=== PATIENT | female | born 1950 | race Caucasian/White ===

== ENCOUNTER → 2021-10-12 | Outpatient (CLI) | payer MEDICARE ==
[2021-10-12 17:50] LABS: African American GFR (CKD) >90 (>60 ml/min/1.73 sqM); Blood Urea Nitrogen 20 mg/dL (7-17); Non-African American GFR(CKD) >90 (>60 ml/min/1.73 sqM)
--- NOTE | 2021-10-13 10:00 | CT ---
EXAMINATION TYPE: CT chest w con DATE OF EXAM: 10/12/2021 COMPARISON: Head CT 09/19/2021 HISTORY: pre-op lobectomy CT DLP: 203 mGycm Automated exposure control for dose reduction was used. TECHNIQUE: CT scan of the chest is performed with IV Contrast, patient injected with 100 mL of Isovue 300. MIP Images are created on CT scanner and reviewed. 3D reconstructed images are created on an independent workstation and reviewed. FINDINGS: LUNGS: Left suprahilar mass is stable measuring 2.9 x 2.3 cm. Underlying mild emphysematous changes a re seen. No focal pneumonia or pleural effusion. No pneumothorax. MEDIASTINUM: Coronary artery calcification. Suprahilar mass on the left measuring 2.9 cm difficult to determine if this is mediastinal or intrapulmonary. Aorta of normal caliber. Atherosclerotic change is noted. OTHER: Hypertrophic and degenerative changes spine. IMPRESSION: 1. Suspicious left suprahilar mass measuring 2.9 cm similar to the previous PET scan.
== END | disposition home or self-care (01) ==
LOC: RADCTMAIN 16:53
PROVIDERS: ATTEND Thoracic Surgery (Cardiothoracic Vascular Surgery)
DX: Z01.818 Encounter for other preprocedural examination (principal); C34.12 Malignant neoplasm of upper lobe, left bronchus or lung
CPT/HCPCS: 82565; 84520; 71260; 36415; Q9967

== ENCOUNTER 2021-10-19 05:57 | Inpatient (IN) | payer MEDICARE ==
[2021-10-18 09:47] VITALS: BMI 25.7
[2021-10-19] MEDS ORDERED: DEXAMETHASONE SOD PHOSPHATE 4 MG/ML 1 ML VIAL IV ONE (06:39)
[2021-10-19] MEDS ORDERED: MIDAZOLAM 2 MG/2 ML VIAL IV PRN (06:39)
[2021-10-19] MEDS ORDERED: LACTATED RINGERS 1,000 ML IV SCH (06:39)
[2021-10-19] MEDS ORDERED: ONDANSETRON 4 MG/2 ML VIAL IVP ONE (06:39)
[2021-10-19] MEDS ORDERED: HYDROmorphone 0.5 MG/0.5 ML SYRINGE IVP PRN (07:00)
[2021-10-19] MEDS ORDERED: LACTATED RINGERS 1,000 ML IV ONE ×3 (07:01→09:10)
[2021-10-19] MEDS ORDERED: MIDAZOLAM 2 MG/2 ML VIAL IVP ONE (07:10)
[2021-10-19] MEDS ORDERED: LIDOCAINE 1% INJ 10MG/ML (20 ML MDV) ONE (07:40)
[2021-10-19] MEDS ORDERED: GLYCOPYRROLATE 0.2 MG/ML 2 ML VIAL ONE (07:40)
[2021-10-19] MEDS ORDERED: fentaNYL (PF) 50 MCG/ML 2 ML AMP ONE (07:40)
[2021-10-19] MEDS ORDERED: SUCCINYLCHOLINE CHLORIDE 100 MG/5 ML SYR IV ONE (07:40)
[2021-10-19] MEDS ORDERED: PROPOFOL 10 MG/ML 20 ML VIAL IV ONE (07:40)
[2021-10-19] MEDS ORDERED: ePHEDrine 50 MG/ML 1 ML VIAL ONE (07:40)
[2021-10-19] MEDS ORDERED: MIDAZOLAM 2 MG/2 ML VIAL ONE (07:40)
[2021-10-19] MEDS ORDERED: ROCURONIUM 10 MG/ML (5 ML VIAL) IV ONE (07:40)
[2021-10-19] MEDS ORDERED: NEOSTIGMINE 1 MG/ML 10 ML VIAL ONE (07:40)
[2021-10-19] MEDS ORDERED: SODIUM CHLORIDE 0.9% 100 ML with ceFAZolin 2,000 MG IV ONE ×2 (07:46)
[2021-10-19] MEDS ORDERED: ROPIVACAINE 250 MG, HYDROMORPHONE (PF) 5 MG in SODIUM CHLORIDE 0.9% 200 ML EPIDURAL PRN (09:41)
[2021-10-19] MEDS ORDERED: NALOXONE 0.4 MG/ML 1 ML VIAL IV PRN (09:41)
--- NOTE | 2021-10-19 09:41 | P.ANPRN ---
Procedure Note - Anesthesia - Epidural/Spinal Epidural Continuous Time Out Performed: Yes Date of Procedure: 10/19/21 Procedure Start Time: 07:09 Procedure Stop Time: 07:16 Location of Patient: PreOp Indication: Acute Post-Operative Pain Sedation Type: Sedate with meaningful contact maintained Preparation: Sterile Dressing Position: Sitting Catheter: Indwelling Needle Guage: 18 Injectate: Test Dose Lidocaine1.5% w/1:200,000 epi Blood Aspirated: No Pain Paresthesia on Injection Noted: No Events: Uneventful and Well Tolerated (test dose given 3cc no aderse effect)
--- NOTE | 2021-10-19 12:04 | XR ---
EXAMINATION TYPE: XR chest 1V portable DATE OF EXAM: 10/19/2021 COMPARISON: NONE HISTORY: Status post lobectomy TECHNIQUE: Single frontal view of the chest is obtained. FINDINGS: Left-sided chest tube is in place the distal tip coursing towards the apex. No sizable pne umothorax. Volume loss present within the left hemithorax. Subcutaneous emphysema is present. No evid ent effusion. Patchy basilar density noted on the right. Cardiac mediastinal silhouette is within nor mal limits. Aorta is dense. There are overlying leads. Surgical clip present in the left hilar region . IMPRESSION: No evident complication status post lobectomy
[2021-10-19] MEDS ORDERED: fentaNYL (PF) 50 MCG/ML 2 ML AMP IVP ONE (12:05)
[2021-10-19] MEDS ORDERED: KETOROLAC 15 MG/ML 1 ML VIAL IVP ONE (12:19)
[2021-10-19] MEDS ORDERED: traMADol 50 MG TAB PO PRN (12:22)
[2021-10-19] MEDS ORDERED: ACETAMINOPHEN TAB 325 MG TAB PO PRN (12:22)
[2021-10-19] MEDS ORDERED: ONDANSETRON 4 MG/2 ML VIAL IVP PRN (12:22)
[2021-10-19] MEDS ORDERED: IPRATROPIUM-ALBUTEROL 3 ML NEB IH PRN (12:22)
[2021-10-19 13:11] LABS: Glucose,Whole Blood 142 mg/dL (75-99)
[2021-10-19] MEDS: DEXTROSE 5%-0.45% NACL 1,000 ML IV SCH (13:19)
[2021-10-19] MEDS: IPRATROPIUM-ALBUTEROL 3 ML NEB IH SCH ×3 (13:34→20:01)
[2021-10-19] MEDS ORDERED: ARTIFICIAL TEARS-HYPROMELLOSE DROPS 15 ML BTL BOTH EYES PRN (14:00)
[2021-10-19] MEDS: diphenhydrAMINE 50 MG/ML 1 ML VIAL IVP PRN ×2 (14:06→20:43)
--- NOTE | 2021-10-19 14:12 | P.OP ---
Date of Procedure: 10/19/21 Preoperative Diagnosis: Left upper lobe lung mass Postoperative Diagnosis: Same Procedure(s) Performed: Left thoracotomy, left upper lobectomy, mediastinal lymph node dissection Implants: None Anesthesia: MINA Surgeon: Rigoberto Turner Estimated Blood Loss (ml): 50 IV fluids (ml): 500 Urine output (ml): 200 Pathology: other (Frozen section of primary tumor showed non-small cell carcinoma, frozen section of bronchial margin was negative, permanent section was sent on the left upper lobe and on lymph node stations L5, L6, level 7, and L10) Indications for Procedure: 71-year-old female who presents with a central left upper lobe mass. Attempts at biopsy were unsuccessful. He this was negative for mediastinal lymph node involvement. PET scan showed uptake in the tumor and no evidence of metastasis. There were no enlarged mediastinal or hilar lymph nodes noted. The tumor was adjacent to the left main pulmonary artery although not obviously invasive thereof. Left upper lobectomy was requested by Dr. Lemon. This was felt to be appropriate. Was discussed at length with the patient and she was scheduled electively. On initial discussion with the patient in a minimally invasive approach was planned however prior to the procedure we wanted to perform a computed tomography scan with contrast in order to better define the pulmonary artery anatomy in relation to the primary tumor. When this was performed and evaluated it was felt that a minimally invasive approach would not be appropriate due to the close apposition of the tumor to the first branch of the pulmonary artery. This was discussed with the patient. Operative Findings: Fissures were incomplete particularly anteriorly. There was a dense desmoplastic reaction in the hilum which made dissection of all the hilar structures very difficult. The tumor was closely opposed to the left pulmonary artery but there was a plane between the 2. Versed 2 branches of the left pulmonary artery leading to the left upper lobe were fairly well encased in tumor and only about a 2 mm length could be obtained on either one of them. Lymph nodes were fairly sparse. There were lymph nodes in the L5 region which were resected and appeared to be benign. There was one lymph node in the L6 region which was resected and appeared to be benign. There was one L 10 lymph node along the mainstem bronchus which was resected and appeared to be benign. There is one small lymph node in the level 7 position which was resected and appeared to be benign. The L8 region was extensively dissected and no lymph nodes were noted. This was the same with L9. On completion of the case the hilum was clean. There was no evidence of tumor. Frozen section of the bronchial margin was negative. Airleak was minimal. Description of Procedure: The patient was brought to the operating room, placed supine on the operating table, anesthetized and intubated. Positioning of the endotracheal tube was confirmed with bronchoscopy. No endobronchial lesions were noted. Tube was secured and the patient was turned in the right lateral decubitus position and appropriately positioned for lobectomy. The left chest was sterilely prepped and draped. Anterior lateral thoracotomy incision was performed. The latissimus muscle was divided and the serratus muscle was mobilized and spared. Chest was entered in the fifth interspace and the intercostals were undercut anteriorly and posteriorly to allow easy rib spreading. 2 Tuffier retractors were placed. Pleural space was exposed. On exploration the tumor was evident on the proximal pulmonary artery. Careful dissection was carried out around the hilum. The inferior pulmonary ligament was mobilized. Dissection was begun at the base of the fissure posteriorly and the pulmonary artery was identified. We were able to complete the fissure posteriorly with the electrocautery. There was a small posterior branch of the pulmonary artery leading to the upper lobe which was doubly ligated and divided. Dissection was then carried along to the lingular branch. This was a large branch. Careful sharp dissection was carried out around annular branch was doubly ligated and divided. Dissection was now carried anteriorly and the inferior portion of the superior pulmonary vein was identified and dissection was carried into the hilum along this plane. We were eventually able to dissected from posteriorly and anteriorly and get around the bronchus anteriorly and through to the anterior portion we were now able to complete the fissure anteriorly with a single firing of Endo MIKHAIL medium thick stapler. Next we did sharp dissection around the upper lobe bronchus at its takeoff from the mainstem bronchus. Lymph nodes were resected en bloc with the specimen. Once we encircled the bronchus we were able to ligated and divided with a medium thick Endo MIKHAIL stapler. We now continued our dissection around the superior pulmonary vein. We were eventually able to completely encircle the superior pulmonary vein. It was ligated proximally with a TA-30 vascular stapler and clamped of the specimen side and divided along the staple line. We then oversewed the clamped portion right at the base of the tumor. With further dissection of the hilum we now could identify 2 remaining branches of the pulmonary artery that were very short and leading into the tumor. All of these were encircled separately. They were ligated and divided and the lobectomy specimen was sent for frozen section of the primary tumor as well as of the bronchial margin. Inspection of the surgical field revealed no evidence of residual tumor. Lymph nodes from the L5 and L6 regions were resected. These were sent for permanent section. Dissection was carried out along the mainstem bronchus and the L 10 and level 7 lymph nodes were resected and sent for permanent section. The LAD and L9 regions were now carefully explored and no lymph nodes were noted. Frozen section returned positive for non-small cell carcinoma in the primary tumor and negative for the bronchial margin. Specific request was made for with pathology discovered dissected the hilum and multiply hilar lymph nodes. The chest was now irrigated with warm water and the lung inflated. Minimal air leak was noted. AtriCure cryoprobe was used to freeze the intercostal nerves at levels 3456 and 7 posteriorly. 28-Greek chest tube was placed through separate stab incision and positioned posterior apically. The ribs were reapproximated with #1 Vicryl. Muscle layers were reapproximated with 0 Vicryl. Subcutaneous tissues were reapproximated with 2-0 Vicryl. Skin was reapproximated with 3-0 Vicryl. Dry sterile dressings were applied the patient was turned supine and extubated and transferred to recovery in stable condition.
--- NOTE | 2021-10-19 15:47 | P.CNPUL ---
History of Present Illness Consult date: 10/19/21 Requesting physician: Rigoberto Turner Reason for consult: other (Status post lobectomy) Chief complaint: Lung mass History of present illness: This is a 71-year-old female with known history of mild COPD, patient was referred to Dr. Lemon on recently discovered left upper lobe mass. Clinically, the mass was highly suspicious for bronchogenic carcinoma. The mass was initially seen in August of 2021, it measured 2.9 cm in size, and there was evidence of mildly enlarged mediastinal lymph nodes. PET scan confirmed the presence of a suprahilar mass in the left upper lobe with average uptake of 6 maximum of 10.SUV. Patient underwent a bronchoscopy and endobronchial ultrasound by Dr. Rui Funes, however the bronchoscopy was nondiagnostic. Patient had minimal pulmonary symptoms mostly mild dyspnea on exertion, her PFT showed FEV1 of 72% of the predicted her total lung capacity was 104%, DLCO was 60%. Patient was referred to Dr. Turner and she underwent left upper lobectomy today, as well as mediastinal lymph node dissection frozen section showed non- small cell carcinoma bronchial margins were negative, chest x-ray postoperatively is basically unremarkable, left-sided chest tube is noted, no evidence of any significant pneumothorax, and the patient is doing clinically well. She is on 2 L nasal cannula with O2 saturation of 100%. Review of Systems Constitutional: Negative patient denies fever chills night sweats or weight loss. HEENT: Negative Pulmonary: Patient had no symptoms except for occasional cough and minimal dyspnea on exertion Cardiac: Negative GI: Negative Genitourinary: Negative Muscular skeletal: Negative Hematologic: Negative Endocrine: Negative Psychiatric: Negative Neurologic: Negative Skin: Negative Past Medical History Additional Past Medical History / Comment(s): Hx pneumonia, bronchitis., numbness/tingling hands., mass left lung, states healing cold sores . History of Any Multi-Drug Resistant Organisms: None Reported Additional Past Surgical History / Comment(s): D & C (1998), BRONCHOSCOPY. Past Anesthesia/Blood Transfusion Reactions: No Reported Reaction Past Psychological History: No Psychological Hx Reported Smoking Status: Former smoker Past Alcohol Use History: Occasional Additional Past Alcohol Use History / Comment(s): quit smoking 2 weeks ago, started smoking age 17, smoked off and on -up to 1 ppd. Past Drug Use History: None Reported - Past Family History Mother Family Medical History: Cancer Additional Family Medical History / Comment(s): stomach cancer Medications and Allergies Home Medications Medication Instructions Recorded Confirmed Type Aspirin [Adult Low Dose Aspirin EC] 81 mg PO Q48H 10/18/21 10/19/21 History Calcium Carbonate [Calcium] 1,200 mg PO DAILY 10/18/21 10/19/21 History Glucosam/Niranjan-Msm1/C/Kam/Bosw 1 each PO DAILY 10/18/21 10/19/21 History [Glucosamine-Chondroitin Tablet] Multivit-Min/FA/Lycopen/Lutein 1 each PO DAILY 10/18/21 10/19/21 History [Centrum Silver Tablet] Rincon-3 Fatty Acids/Fish Oil [Fish 1 each PO DAILY 10/18/21 10/19/21 History Oil 1,000 mg Softgel] Vit C/E/Zn/Coppr/Lutein/Zeaxan 2 tab PO DAILY 10/18/21 10/19/21 History [Preservision Areds 2 Softgel] Allergies Allergy/AdvReac Type Severity Reaction Status Date / Time amoxicillin Allergy Unknown Rash/Hives Verified 10/19/21 06:40 Sulfa (Sulfonamide Allergy Unknown Rash/Hives Verified 10/19/21 06:40 Antibiotics) Physical Exam Vitals: Vital Signs Temp Pulse Pulse Pulse Resp BP BP 10/19/21 15:14 96 10/19/21 15:06 95 16 10/19/21 14:00 87 23 113/63 10/19/21 13:45 89 14 10/19/21 13:30 86 11 L 10/19/21 13:15 61 14 113/63 10/19/21 13:01 68 11 L 10/19/21 12:46 64 16 122/60 10/19/21 12:32 58 L 16 124/63 10/19/21 12:16 56 L 16 98/55 10/19/21 12:00 79 16 94/54 10/19/21 11:45 70 16 95/55 10/19/21 11:39 97.0 F L 77 12 110/64 10/19/21 06:35 97.1 F L 72 16 133/76 Pulse Ox 10/19/21 15:14 10/19/21 15:06 10/19/21 14:00 97 10/19/21 13:45 97 10/19/21 13:30 98 10/19/21 13:15 97 10/19/21 13:01 10/19/21 12:46 98 10/19/21 12:32 100 10/19/21 12:16 100 10/19/21 12:00 100 10/19/21 11:45 99 10/19/21 11:39 99 10/19/21 06:35 96 Intake and Output 10/19/21 10/19/21 10/19/21 06:59 14:59 22:59 Intake Total 1711 Output Total 440 Balance 1271 Intake: IV 1561 Dextrose 5%-0.45% NaCl 1, 50 000 ml @ 50 mls/hr IV . Q20H [facility] Rx#:[id number] Oral 150 Output: Urine 390 Estimated Blood Loss 50 Other: Weight 72.8 kg ABP, PAP, CO, CI - Last 8 Hours Arterial Blood Pressure 128/60 Arterial Blood Pressure 122/55 Arterial Blood Pressure 111/52 Arterial Blood Pressure 110/46 Physical Exam: Revealed 71-year-old female in no distress Head: Atraumatic, normocephalic. HEENT:[Neck is supple.] [No neck masses.] [No thyromegaly.] [No JVD.]. Lillian, EOMI, nonicteric. Moist mucous membranes. Chest: Symmetrical chest expansion, diminished breath sound bilaterally, left sided chest tube is noted. Intermittent air leak is noted. Cardiac Exam: [Normal S1 and S2, no S3 gallop, no murmur.] Abdomen: [Soft, nontender, no megaly, no rebound, no guarding, normal bowel sounds.] Extremities: [No clubbing, no edema, no cyanosis.] Neurological Exam: [No focal neurologic deficit.] Alert oriented 3. Psychiatric: Normal mood, affect and normal mental status examination. Skin: No rashes. Musculoskeletal: No deformities and no limitation in range of motion. Results - Laboratory Findings Abnormal lab findings: Abnormal Labs 10/19/21 13:08 POC Glucose (mg/dL) 142 H - Diagnostic Findings Chest x-ray: image reviewed (As noted in HPI.) Assessment and Plan Assessment: Impression: Status post left upper lobectomy, mediastinal lymph node dissection, postoperative day #0 Non-small cell lung cancer, based on frozen section of primary tumor History of mild COPD Tobacco dependence syndrome Recommendation: Continue to monitor the patient in the ICU for now. Incentive spirometry. Early ambulation. Continue chest tube to suction. Repeat chest x-ray in a.m. for follow-up. Awaiting final pathology report. Continue updrafts when necessary. Pain control. GI and DVT prophylaxis. We'll continue to follow. Time with Patient: Greater than 30
[2021-10-19] MEDS: HEPARIN SODIUM,PORCINE/PF 5,000 UNIT/0.5 ML SYRINGE SQ SCH (16:31)
[2021-10-19] MEDS: KETOROLAC 30 MG/ML 1 ML VIAL IVP SCH (17:55)
[2021-10-20] MEDS: KETOROLAC 30 MG/ML 1 ML VIAL IVP SCH ×5 (00:58→23:33)
[2021-10-20] MEDS: HEPARIN SODIUM,PORCINE/PF 5,000 UNIT/0.5 ML SYRINGE SQ SCH ×4 (00:58→23:33)
[2021-10-20 06:03] LABS: Basophils % (A) 0 %; Eosinophils # (A) 0.1 k/uL (0-0.7); Eosinophils % (A) 1 %; HCT 40.3 % (34.0-46.0); HGB 12.8 gm/dL (11.4-16.0); Lymphocytes # (A) 2.3 k/uL (1.0-4.8); Lymphocytes % (A) 18 %; MCH 31.3 pg (25.0-35.0); MCHC 31.8 g/dL (31.0-37.0); MCV 98.6 fL (80.0-100.0); Mean Platelet Volume 7.2; Monocytes # (A) 0.9 k/uL (0-1.0); Monocytes % (A) 8 %; Neutrophils % (A) 71 %; Platelet Count 248 k/uL (150-450); RBC 4.08 m/uL (3.80-5.40); WBC 12.6 k/uL (3.8-10.6)
[2021-10-20 06:12] LABS: Calcium 8.6 mg/dL (8.4-10.2); Potassium 4.9 mmol/L (3.5-5.1)
[2021-10-20] MEDS: DEXTROSE 5%-0.45% NACL 1,000 ML IV SCH (07:46)
--- NOTE | 2021-10-20 08:05 | XR ---
EXAMINATION TYPE: XR chest 1V DATE OF EXAM: 10/20/2021 COMPARISON: Chest x-ray dated 10/19/2021 HISTORY: Status post lobectomy, chest tube TECHNIQUE: Single frontal view of the chest is obtained. FINDINGS: Left-sided chest tube is stable. There is subcutaneous emphysema. No evident pneumothorax or pleural effusion. Cardiac mediastinal silhouette is stable. Bones are unchanged. There is improvem ent in aeration. Surgical clips present in the left hilar region, left hilar prominence may be postop erative. IMPRESSION: Satisfactory postoperative chest x-ray.
[2021-10-20] MEDS: IPRATROPIUM-ALBUTEROL 3 ML NEB IH SCH ×4 (08:37→19:36)
[2021-10-20] MEDS: ASPIRIN 81 MG PO SCH (09:05)
[2021-10-20] MEDS: PANTOPRAZOLE 40 MG TABLET PO SCH (09:06)
[2021-10-20] MEDS: CALCIUM CARBONATE 500 MG CHEWABLE PO SCH (09:06)
--- NOTE | 2021-10-20 09:21 | P.PN ---
Progress Note - Text 10/20/21 640 69-year-old status post thoracotomy by Dr. Turner, patient has an epidural catheter for postoperative pain. Control with the solution running at 4 mL an hour. She has a VAS of 0, no complains of nausea. She does have complains of pruritus which is because of Dilaudid . Dressing clean dry and intact. Plan to continue epidural infusion
--- NOTE | 2021-10-20 09:40 | P.PN ---
Subjective Progress Note Date: 10/20/21 Principal diagnosis: Left upper lobe lung mass. Past medical History significant for mild COPD with preoperative FEV1 showing a 72% of predicted value and chronic ongoing tobacco dependence. POD #1 Left thoracotomy, left upper lobectomy, mediastinal lymph node dissection. The patient was seen in follow-up today 10/20/2021 at her bedside in the intensive care unit. Currently she is laying in bed with her head elevated, is awake, alert, oriented 3 and is in no acute apparent distress. Epidural remained in place at 4 mL per hour and is currently rating her pain 3 out of 10 on the pain scale. She remains hemodynamically stable and is currently on no inotropic or pressor support. Left pleural chest tube is in place to water seal. No air leak is present. Draining thin serosanguineous drainage with 300 mL output in the last 8 hours and 800 mL output since surgery. Oxygen saturations are 96% on 1 L nasal cannula and she is achieving 750 mL on her incentive spirometry with encouragement. Bedside telemetry showing normal sinus rhythm heart rate 90 BPM. She denies any complaints of shortness of breath although is complaining of some itchiness from the epidural. Objective - Vital Signs Vital signs: Vital Signs Temp 98.7 F 10/20/21 04:00 Pulse 84 10/20/21 06:00 Resp 14 10/20/21 06:00 BP 83/64 10/20/21 06:00 Pulse Ox 96 10/20/21 06:00 Intake & Output 10/19/21 10/20/21 10/20/21 18:59 06:59 18:59 Intake Total 2173 1484 Output Total 850 1075 Balance 1323 409 Weight 74.389 kg Intake: IV 1773 664 Dextrose 5%-0.45% NaCl 1, 250 575 000 ml @ 50 mls/hr IV . Q20H [facility] Rx#:[id number] Pressure Bag 12 39 ceFAZolin 2 gm In Sodium 50 Chloride 0.9% 50 ml @ 100 mls/hr IVPB Q8HR [facility] Rx# :[id number] Oral 400 820 Output: Chest Tube Drainage 250 400 Left Anterior Chest 250 400 Urine 550 675 Estimated Blood Loss 50 Other: Voiding Method Indwelling Catheter Indwelling Catheter ABP, PAP, CO, CI - Last Documented Arterial Blood Pressure 97/50 - Exam CONSTITUTIONAL: Lying in bed with her head elevated in the intensive care unit, appears comfortable, cooperative, no apparent acute distress. HEENT: Neck is supple, no JVD, no lymphadenopathy. RESPIRATORY: Lungs sounds essentially clear throughout, diminished to his bilateral bases left greater than right. Respirations are symmetrical and nonlabored. Currently on 1 L nasal cannula with oxygen saturations 96%. Able to achieve 750 mL on her incentive spirometry. Strong cough. CARDIOVASCULAR: Regular rhythm and rate. S1 and S2 present, negative for S3, gallop or murmur. Palpable peripheral pulses bilaterally. No calf pain or tenderness noted. Knee-high sequential compression devices in place to his bilateral lower extremities. GASTROINTESTINAL: Abdomen soft, nontender, nondistended. Active bowel sounds present 4 quadrants. Tolerating diet. Passing flatus. No guarding or rigidity. GENITOURINARY: Lima present draining clear, yellow urine. Output 355 mL in the last 8 hours. INTEGUMENTARY: Skin is warm and dry with no evidence of clubbing or cyanosis. Left lateral chest incision, covered with dry and intact dressing. Epidural site is clean and dry with dressing clean, dry and intact. NEUROLOGIC: Cranial nerves II through XII intact. No focal deficits. Epidural infusing at 4 mL per hour MUSKULOSKELETAL: Able to move all extremities, strength equal bilaterally. PSYCHIATRIC: Alert and oriented to person place and time, appropriate affect, intact judgment and insight. INVASIVE LINES AND TUBES: Left pleural chest tube present to waterseal, no air leaks present. Left pleural chest tube with 300 mL of thin serosanguineous zulma inage overnight, 800 mL output in the last 24 hours. - Allied health notes Allied health notes reviewed: nursing - Labs CBC & Chem 7: 10/20/21 05:23 10/20/21 05:28 Labs: Abnormal Lab Results - Last 24 Hours (Table) 10/19/21 10/20/21 10/20/21 Range/Units 13:08 05:23 05:28 WBC 12.6 H (3.8-10.6) k/uL Neutrophils # 9.0 H (1.3-7.7) k/uL Sodium 130 L (137-145) mmol/L POC Glucose (mg/dL) 142 H (75-99) mg/dL - Imaging and Cardiology Chest x-ray: report reviewed, image reviewed Assessment and Plan Assessment: 1. Left upper lobe mass, status post left thoracotomy, left upper lobectomy with frozen section of primary tumor showing non-small cell carcinoma 2. Mild COPD with a preoperative FEV1 showing a 72% of predicted value 3. Chronic ongoing tobacco dependence Plan: 1. Keep left pleural chest tube in place to water seal. Continue to monitor for air leak. 2. Encourage use of her incentive spirometry 10 times every hour while awake. 3. Wean oxygen as tolerated. Bronchodilator management per pulmonary critical care recommendations. 4. GI and DVT prophylaxis 5. Follow up pathology results, currently pending. 6. Increase activity as tolerated, out of bed for all meals. 7. Epidural management per anesthesia. 8. Importance of smoking cessation has been discussed with the patient. 9. Pain control per current when necessary orders. 10. Discontinue IV fluids. 11. Transfer orders have been placed to third floor cardiac stepdown unit. 12. More recommendations to follow based on patient's clinical course. Time with Patient: Greater than 30
--- NOTE | 2021-10-20 14:43 | P.PN ---
Subjective Progress Note Date: 10/20/21 This is a 71-year-old female with known history of mild COPD, patient was refer red to Dr. Lemon on recently discovered left upper lobe mass. Clinically, the mass was highly suspicious for bronchogenic carcinoma. The mass was initially seen in August of 2021, it measured 2.9 cm in size, and there was evidence of mildly enlarged mediastinal lymph nodes. PET scan confirmed the presence of a suprahilar mass in the left upper lobe with average uptake of 6 maximum of 10.SUV. Patient underwent a bronchoscopy and endobronchial ultrasound by Dr. Rui Funes, however the bronchoscopy was nondiagnostic. Patient had minimal pulmonary symptoms mostly mild dyspnea on exertion, her PFT showed FEV1 of 72% of the predicted her total lung capacity was 104%, DLCO was 60%. Patient was referred to Dr. Turner and she underwent left upper lobectomy today, as well as mediastinal lymph node dissection frozen section showed non- small cell carcinoma bronchial margins were negative, chest x-ray postoperatively is basically unremarkable, left-sided chest tube is noted, no evidence of any significant pneumothorax, and the patient is doing clinically well. She is on 2 L nasal cannula with O2 saturation of 100%. On today's evaluation of 10/20/2021, seeing the patient for a follow-up. The patient is doing well. The patient is post left upper lobe lobectomy. The patient is postop day #1. The patient underwent a left upper lobe resection/lobectomy and mediastinal for resection. The patient otherwise doing well. No specific complaints. The patient is currently on room air oxygen. The patient has an epidural pain control with hydromorphone and bupivacaine and the pain scale is around 3 out of 10 in severity. She is able to tolerate incentive spirometer. Chest tube is still in place and there is no evidence of any air leak and output has been approximately 800 mL since surgery, theophylline disease over the past 8 hours. Cardiac rhythm is sinus. Chest x- ray showed no evidence of any pneumothorax. Her only complaint is some limited amount of itching probably related today drug effect related to the narcotics. Otherwise, no other specific complaints. The white cell count is at 12.6 with a hemoglobin of 12.8 and a platelet count of 248. Sodium is at 1:30 with a potassium level of 4.1, BUN is at 17 with a creatinine of 0.8 and a calcium l evel is at 8.6. Objective - Vital Signs Vital signs: Vital Signs Temp 98 F 10/20/21 08:00 Pulse 78 10/20/21 11:00 Resp 10 L 10/20/21 11:00 BP 94/48 10/20/21 11:00 Pulse Ox 96 10/20/21 11:00 Intake & Output 10/19/21 10/20/21 10/20/21 18:59 06:59 18:59 Intake Total 2173 1484 1452 Output Total 850 1075 140 Balance 9404 292 4920 Weight 74.389 kg Intake: IV 1773 664 12 Dextrose 5%-0.45% NaCl 1, 250 575 000 ml @ 50 mls/hr IV . Q20H MEHUL Rx#:[id number] Pressure Bag 12 39 12 ceFAZolin 2 gm In Sodium 50 Chloride 0.9% 50 ml @ 100 mls/hr IVPB Q8HR MEHUL Rx# :[id number] Oral 706 376 1154 Output: Chest Tube Drainage 250 400 Left Anterior Chest 250 400 Urine 550 675 140 Estimated Blood Loss 50 Other: Voiding Method Indwelling Catheter Indwelling Catheter Indwelling Catheter ABP, PAP, CO, CI - Last Documented Arterial Blood Pressure 97/50 - Exam CONSTITUTIONAL: Lying in bed with her head elevated in the intensive care unit, appears comfortable, cooperative, no apparent acute distress. HEENT: Neck is supple, no JVD, no lymphadenopathy. RESPIRATORY: Lungs sounds essentially clear throughout, diminished to his bilateral bases left greater than right. Respirations are symmetrical and nonlabored. Currently on 1 L nasal cannula with oxygen saturations 96%. Able t o achieve 750 mL on her incentive spirometry. Strong cough. CARDIOVASCULAR: Regular rhythm and rate. S1 and S2 present, negative for S3, gallop or murmur. Palpable peripheral pulses bilaterally. No calf pain or tenderness noted. Knee-high sequential compression devices in place to his bilateral lower extremities. GASTROINTESTINAL: Abdomen soft, nontender, nondistended. Active bowel sounds present 4 quadrants. Tolerating diet. Passing flatus. No guarding or rigidity. GENITOURINARY: Lima present draining clear, yellow urine. Output 355 mL in the last 8 hours. INTEGUMENTARY: Skin is warm and dry with no evidence of clubbing or cyanosis. Left lateral chest incision, covered with dry and intact dressing. Epidural site is clean and dry with dressing clean, dry and intact. NEUROLOGIC: Cranial nerves II through XII intact. No focal deficits. Epidural infusing at 4 mL per hour MUSKULOSKELETAL: Able to move all extremities, strength equal bilaterally. PSYCHIATRIC: Alert and oriented to person place and time, appropriate affect, intact judgment and insight. INVASIVE LINES AND TUBES: Left pleural chest tube present to waterseal, no air leaks present. Left pleural chest tube with 300 mL of thin serosanguineous drainage overnight, 800 mL output in the last 24 hours. We'll continue starting - Labs CBC & Chem 7: 10/20/21 05:23 10/20/21 05:28 Labs: Abnormal Lab Results - Last 24 Hours (Table) 10/20/21 10/20/21 Range/Units 05:23 05:28 WBC 12.6 H (3.8-10.6) k/uL Neutrophils # 9.0 H (1.3-7.7) k/uL Sodium 130 L (137-145) mmol/L Assessment and Plan Plan: Status post left upper lobectomy, mediastinal lymph node dissection, pos toperative day #1, and the patient is doing well and the patient is hemodynamically stable at this point in time. Patient has been extubated successfully and the patient is currently on room air oxygen. Chest wall pain, controlled with epidural bupivacaine and Dilaudid for pain control from anesthesia on the case Non-small cell lung cancer, based on frozen section of primary tumor History of mild COPD Tobacco dependence syndrome Plan We'll keep the chest tube in for another 24 hours. No evidence of any air leak and the chest x-ray showing adequate expansion of the left lung Continue using incentive spirometer Patient is currently on room air oxygen Epidural pain control Transfer the patient out of the intensive care unit and will continue to follow
[2021-10-20] MEDS: diphenhydrAMINE 50 MG/ML 1 ML VIAL IVP PRN (21:43)
[2021-10-21] MEDS: KETOROLAC 30 MG/ML 1 ML VIAL IVP SCH ×4 (05:22→23:19)
[2021-10-21] MEDS: PANTOPRAZOLE 40 MG TABLET PO SCH (05:22)
[2021-10-21] MEDS ORDERED: METOCLOPRAMIDE 5 MG/ML 2 ML VIAL IVP STA (06:56)
--- NOTE | 2021-10-21 07:40 | XR ---
EXAMINATION TYPE: XR chest 1V portable DATE OF EXAM: 10/21/2021 COMPARISON: Chest x-ray 10/20/2021 HISTORY: Chest tube, postop left upper lobectomy TECHNIQUE: Single frontal view of the chest is obtained. FINDINGS: Left-sided chest tube remains in place. There are overlying artifacts. No evident pneumoth orax or sizable effusion. Volume loss is present in left hemithorax. There is prominence left hilum w ith surgical clip present. Subcutaneous emphysema is present, bandlike area of increased attenuation present in the left mid lung has developed in the interval. Interstitium is mildly increased. There i s some blunting of the left costophrenic angle. Cardiac mediastinal silhouette is unchanged. IMPRESSION: Postop changes. Probable atelectasis. Difficult to exclude small effusion.
[2021-10-21 08:18] LABS: HCT 35.6 % (34.0-46.0); HGB 11.6 gm/dL (11.4-16.0); MCH 31.9 pg (25.0-35.0); MCHC 32.5 g/dL (31.0-37.0); MCV 98.1 fL (80.0-100.0); Mean Platelet Volume 7.7; Platelet Count 218 k/uL (150-450); RBC 3.63 m/uL (3.80-5.40); RDW 12.6 % (11.5-15.5); WBC 11.8 k/uL (3.8-10.6)
[2021-10-21 08:34] LABS: African American GFR (CKD) >90 (>60 ml/min/1.73 sqM); Anion Gap 3 mmol/L; Blood Urea Nitrogen 16 mg/dL (7-17); Carbon Dioxide 26 mmol/L (22-30); Chloride 99 mmol/L (98-107); Glucose 119 mg/dL (74-99); Non-African American GFR(CKD) 87 (>60 ml/min/1.73 sqM); Potassium 4.4 mmol/L (3.5-5.1); Sodium 128 mmol/L (137-145)
[2021-10-21] MEDS: HEPARIN SODIUM,PORCINE/PF 5,000 UNIT/0.5 ML SYRINGE SQ SCH ×3 (08:37→23:19)
[2021-10-21] MEDS: IPRATROPIUM-ALBUTEROL 3 ML NEB IH SCH ×4 (08:52→20:00)
[2021-10-21] MEDS: CALCIUM CARBONATE 500 MG CHEWABLE PO SCH (09:26)
--- NOTE | 2021-10-21 10:32 | P.PN ---
Progress Note - Text Progress Note Date: 10/21/21 (144) Anesthesia Postop day 2 Status post thoracotomy with epidural day #3 Patient seen and examined. Doing well without complaint. VAS 0-1 out of 10. No nausea or vomiting. Plus pruritus. Ropivacaine 0.1% with Dilaudid 20 mcg/mL at for cc an hour. Objective: Vital signs reviewed Lungs: Good chest excursion Abdomen: Appears nondistended Other: Epidural Site Intact without induration. Dressing intact Neuro: No apparent motor block. Sensory within normal limits. Assessment: Status post thoracotomy with epidural postoperative day #2 Plan: Continue current care with your medical management. Anticipate discontinued catheter later today while heparin has been held for over 6 hours. Communicated with nurse and she understands. Cardiothoracic surgery team request epidural be DC'd as they're pulling chest tubes. May resume heparin on ce epidural pulled.
--- NOTE | 2021-10-21 12:45 | P.PN ---
Subjective Progress Note Date: 10/21/21 Principal diagnosis: Left upper lobe lung mass. Past medical History significant for mild COPD with preoperative FEV1 showing a 72% of predicted value and chronic ongoing tobacco dependence. POD #2 Left thoracotomy, left upper lobectomy, mediastinal lymph node dissection. The patient was seen in follow-up today 10/21/2021 at her bedside on the third floor cardiac care unit. Currently she is laying in bed with her head elevated, is awake, alert, oriented 3 and is in no acute apparent distress. She denies any complaints of shortness of breath at this time, although is complaining some intermittent pain to her left shoulder with taking deep breaths and coughing. The epidural remains in place and infusing at 4 mL per hour. Oxygen saturations are 94% on room air and she is achieving 1000 mL on her incentive spirometry with encouragement. Left pleural chest tube remains in place to water seal. No air leak is present. Draining thin serous sanguinous drainage with 390 mL output in the last 24 hours. She reports she has been up ambulating in her room and in the stepdown hallway with minimal assistance from nursing staff. Remote telemetry showing normal sinus rhythm heart rate 79 BPM. Objective - Vital Signs Vital signs: Vital Signs Temp 98.1 F 10/21/21 08:00 Pulse 90 10/21/21 12:01 Resp 16 10/21/21 08:00 BP 94/46 10/21/21 08:00 Pulse Ox 94 L 10/21/21 08:00 Intake & Output 10/20/21 10/21/21 10/21/21 18:59 06:59 18:59 Intake Total 3012 600 400 Output Total 340 1300 0 Balance 2672 -700 400 Intake: IV 12 Pressure Bag 12 Oral 3000 600 400 Output: Chest Tube Drainage 200 800 0 Left Anterior Chest 200 800 0 Urine 140 500 Other: Voiding Method Indwelling Catheter Indwelling Catheter Indwelling Catheter ABP, PAP, CO, CI - Last Documented Arterial Blood Pressure 97/50 - Exam CONSTITUTIONAL: Lying in bed with her head elevated on the third floor cardiac care unit, appears comfortable, cooperative, no apparent acute distress. HEENT: Neck is supple, no JVD, no lymphadenopathy. RESPIRATORY: Lungs sounds essentially clear throughout, diminished to his bilateral bases left greater than right. Respirations are symmetrical and nonlabored. Currently on room air with oxygen saturations 94%. Able to achieve 1000 mL on her incentive spirometry. Strong cough. CARDIOVASCULAR: Regular rhythm and rate. S1 and S2 present, negative for S3, gallop or murmur. Palpable peripheral pulses bilaterally. No calf pain or tenderness noted. Knee-high sequential compression devices in place to his bilateral lower extremities. GASTROINTESTINAL: Abdomen soft, nontender, nondistended. Active bowel sounds present 4 quadrants. Tolerating diet. Passing flatus. No guarding or rigidity. GENITOURINARY: Lima present draining clear, yellow urine. Output 640 mL in the last 8 hours. INTEGUMENTARY: Skin is warm and dry with no evidence of clubbing or cyanosis. Left lateral chest incision, covered with dry and intact dressing. Epidural site is clean and dry with dressing clean, dry and intact. NEUROLOGIC: Cranial nerves II through XII intact. No focal deficits. Epidural infusing at 4 mL per hour MUSKULOSKELETAL: Able to move all extremities, strength equal bilaterally. PSYCHIATRIC: Alert and oriented to person place and time, appropriate affect, intact judgment and insight. INVASIVE LINES AND TUBES: Left pleural chest tube present to waterseal, no air leaks present. Left pleural chest tube with 300 mL output in the last 24 hours. - Allied health notes Allied health notes reviewed: nursing - Labs CBC & Chem 7: 10/21/21 07:39 10/21/21 07:39 Labs: Abnormal Lab Results - Last 24 Hours (Table) 10/21/21 10/21/21 Range/Units 07:39 07:39 WBC 11.8 H (3.8-10.6) k/uL RBC 3.63 L (3.80-5.40) m/uL Sodium 128 L (137-145) mmol/L Glucose 119 H (74-99) mg/dL Calcium 8.0 L (8.4-10.2) mg/dL - Imaging and Cardiology Chest x-ray: report reviewed, image reviewed Assessment and Plan Assessment: 1. Left upper lobe mass, status post left thoracotomy, left upper lobectomy with frozen section of primary tumor showing non-small cell carcinoma 2. Mild COPD with a preoperative FEV1 showing a 72% of predicted value 3. Chronic ongoing tobacco dependence Plan: 1. Left pleural chest tube removed without incident. 2. Encourage use of her incentive spirometry 10 times every hour while awake. 3. Wean oxygen as tolerated. Bronchodilator management per pulmonary critical care recommendations. 4. GI and DVT prophylaxis 5. Follow up pathology results, currently pending. 6. Increase activity as tolerated, out of bed for all meals. 7. Discontinu her Epidural. 8. Importance of smoking cessation has been discussed and reinforced with the patient. 9. Pain control per current when necessary orders. 10. Labs today show sodium level of [address] on 1500 mL fluid restriction. 11. Discharge planning is in place, anticipate discharge home in the next 24 hours. 12. More recommendations to follow based on patient's clinical course. Time with Patient: Greater than 30
--- NOTE | 2021-10-21 13:07 | P.PN ---
<Florecita Vargas - Last Filed: 10/21/21 13:00> Subjective Progress Note Date: 10/21/21 This is a 71-year-old female with known history of mild COPD, patient was referred to Dr. Lemon on recently discovered left upper lobe mass. Clinically, the mass was highly suspicious for bronchogenic carcinoma. The mass was initially seen in August of 2021, it measured 2.9 cm in size, and there was evidence of mildly enlarged mediastinal lymph nodes. PET scan confirmed the presence of a suprahilar mass in the left upper lobe with average uptake of 6 maximum of 10.SUV. Patient underwent a bronchoscopy and endobronchial ultrasound by Dr. Rui Funes, however the bronchoscopy was nondiagnostic. Patient had minimal pulmonary symptoms mostly mild dyspnea on exertion, her PFT showed FEV1 of 72% of the predicted her total lung capacity was 104%, DLCO was 60%. Patient was referred to Dr. Turner and she underwent left upper lobectomy today, as well as mediastinal lymph node dissection frozen section showed non- small cell carcinoma bronchial margins were negative, chest x-ray postoperatively is basically unremarkable, left-sided chest tube is noted, no evidence of any significant pneumothorax, and the patient is doing clinically well. She is on 2 L nasal cannula with O2 saturation of 100%. On today's evaluation of 10/20/2021, seeing the patient for a follow-up. The patient is doing well. The patient is post left upper lobe lobectomy. The patient is postop day #1. The patient underwent a left upper lobe resection/lobectomy and mediastinal for resection. The patient otherwise doing well. No specific complaints. The patient is currently on room air oxygen. The patient has an epidural pain control with hydromorphone and bupivacaine and the pain scale is around 3 out of 10 in severity. She is able to tolerate incentive spirometer. Chest tube is still in place and there is no evidence of any air leak and output has been approximately 800 mL since surgery, theophylline disease over the past 8 hours. Cardiac rhythm is sinus. Chest x- ray showed no evidence of any pneumothorax. Her only complaint is some limited amount of itching probably related today drug effect related to the narcotics. Otherwise, no other specific complaints. The white cell count is at 12.6 with a hemoglobin of 12.8 and a platelet count of 248. Sodium is at 1:30 with a potassium level of 4.1, BUN is at 17 with a creatinine of 0.8 and a calcium level is at 8.6. The patient is seen today for 2021 in follow-up on the selective care unit. She is currently sitting up in bed. Awake and alert in no acute distress. Denies any worsening shortness of breath, cough or congestion. This is postoperative day #2 of the left upper lobe lobectomy. Pathology is pending. Chest x-ray reveals left-sided chest tube in place. No evidence of pneumothorax or sizable effusion. There is prominence of the left hilum on the surgical clip present. Subcutaneous emphysema present. Bandlike area of increased att enuation in the left lung. White count 11.8. Hemoglobin 11.6. Sodium 128. Potassium 4.4. Creatinine 0.70. Glucose 119. She remains on DuoNeb inhalations. Heparin for DVT prophylaxis. Working well with the incentive spirometer. Objective - Vital Signs Vital signs: Vital Signs Temp 101 F H 10/21/21 12:00 Pulse 90 10/21/21 12:01 Resp 20 10/21/21 12:00 BP 93/48 10/21/21 12:00 Pulse Ox 93 L 10/21/21 12:00 Intake & Output 10/20/21 10/21/21 10/21/21 18:59 06:59 18:59 Intake Total 3012 600 400 Output Total 340 1300 0 Balance 2672 -700 400 Intake: IV 12 Pressure Bag 12 Oral 3000 600 400 Output: Chest Tube Drainage 200 800 0 Left Anterior Chest 200 800 0 Urine 140 500 Other: Voiding Method Indwelling Catheter Indwelling Catheter Indwelling Catheter ABP, PAP, CO, CI - Last Documented Arterial Blood Pressure 97/50 - Exam CONSTITUTIONAL: Very pleasant 71-year-old female patient, sitting up in bed,, appears comfortable, cooperative, no apparent acute distress. HEENT: Neck is supple, no JVD, no lymphadenopathy. RESPIRATORY: Lungs sounds essentially clear throughout, crackles in the left lung base. Respirations are symmetrical and nonlabored. Currently on room air with oxygen saturations 93%. Able to achieve 1000 mL on her incentive spirometry. Strong cough. CARDIOVASCULAR: Regular rhythm and rate. S1 and S2 present, negative for S3, gallop or murmur. Palpable peripheral pulses bilaterally. No calf pain or tenderness noted. Knee-high sequential compression devices in place to his bilateral lower extremities. GASTROINTESTINAL: Abdomen soft, nontender, nondistended. Active bowel sounds present 4 quadrants. Tolerating diet. Passing flatus. No guarding or rigidity. GENITOURINARY: Lima present draining clear, yellow urine. Output 355 mL in the last 8 hours. INTEGUMENTARY: Skin is warm and dry with no evidence of clubbing or cyanosis. Left lateral chest incision, covered with dry and intact dressing. Epidural site is clean and dry with dressing clean, dry and intact. NEUROLOGIC: Cranial nerves II through XII intact. No focal deficits. Epidural infusing at 4 mL per hour MUSKULOSKELETAL: Able to move all extremities, strength equal bilaterally. PSYCHIATRIC: Alert and oriented to person place and time, appropriate affect, intact judgment and insight. INVASIVE LINES AND TUBES: Left pleural chest tube present to waterseal, no air leaks present. We'll continue to monitor. - Labs CBC & Chem 7: 10/21/21 07:39 10/21/21 07:39 Labs: Abnormal Lab Results - Last 24 Hours (Table) 10/21/21 10/21/21 Range/Units 07:39 07:39 WBC 11.8 H (3.8-10.6) k/uL RBC 3.63 L (3.80-5.40) m/uL Sodium 128 L (137-145) mmol/L Glucose 119 H (74-99) mg/dL Calcium 8.0 L (8.4-10.2) mg/dL Assessment and Plan Assessment: Status post left upper lobectomy, mediastinal lymph node dissection, postoperative day #1, and the patient is doing well and the patient is hemodynamically stable at this point in time. Patient has been extubated successfully and the patient is currently on room air oxygen. Chest wall pain, controlled with epidural bupivacaine and Dilaudid for pain control from anesthesia on the case Non-small cell lung cancer, based on frozen section of primary tumor History of mild COPD Tobacco dependence syndrome Plan The patient was seen and evaluated Chest x-ray and labs reviewed Plan is for chest tube removal today Continues to work with the incentive spirometer Epidural catheter to be discontinued Increase her activity as tolerated Stable and on room air Home once cleared by CT services We will continue to follow I, the cosigning physician, performed a history & physical examination of the patient. Lungs sounds with crackles in the left lung base. Maintaining good O2 saturations in the 90s on room air. I discussed the assessment and plan of care with my nurse practitioner, Florecita Vargas. I attest to the above note as dictated by her. I have personally seen and examined the patient, performed the documentation and the assessment and plan as written. Number of minutes spent on the visit: 10. <Alesha Lemon - Last Filed: 10/21/21 13:45> Objective - Vital Signs Vital signs: Vital Signs Temp 101 F H 10/21/21 12:00 Pulse 90 10/21/21 13:33 Resp 20 10/21/21 13:33 BP 93/48 10/21/21 12:00 Pulse Ox 93 L 10/21/21 12:00 Intake & Output 10/20/21 10/21/21 10/21/21 18:59 06:59 18:59 Intake Total 3012 600 400 Output Total 340 1300 0 Balance 2672 -700 400 Intake: IV 12 Pressure Bag 12 Oral 3000 600 400 Output: Chest Tube Drainage 200 800 0 Left Anterior Chest 200 800 0 Urine 140 500 Other: Voiding Method Indwelling Catheter Indwelling Catheter Toilet ABP, PAP, CO, CI - Last Documented Arterial Blood Pressure 97/50 - Labs CBC & Chem 7: 10/21/21 07:39 10/21/21 07:39 Labs: Abnormal Lab Results - Last 24 Hours (Table) 10/21/21 10/21/21 Range/Units 07:39 07:39 WBC 11.8 H (3.8-10.6) k/uL RBC 3.63 L (3.80-5.40) m/uL Sodium 128 L (137-145) mmol/L Glucose 119 H (74-99) mg/dL Calcium 8.0 L (8.4-10.2) mg/dL Assessment and Plan Assessment: I have personally seen and examined the patient and reviewed the documentation. I performed a joint evaluation with the nurse practitioner in this evaluation was done more than 20 minutes. I fully agree with the documentation above and the plan of care.
[2021-10-21 15:39] VITALS: RESP 16
[2021-10-21 21:38] LABS: Glucose,Whole Blood 100 mg/dL (75-99)
[2021-10-22] MEDS: PANTOPRAZOLE 40 MG TABLET PO SCH (06:30)
[2021-10-22] MEDS: KETOROLAC 30 MG/ML 1 ML VIAL IVP SCH (06:30)
[2021-10-22] MEDS: IPRATROPIUM-ALBUTEROL 3 ML NEB IH SCH ×2 (07:32→11:27)
--- NOTE | 2021-10-22 08:05 | XR ---
EXAMINATION TYPE: XR chest 2V DATE OF EXAM: 10/22/2021 COMPARISON: Chest x-ray 10/21/2021, CT chest 10/12/2021 HISTORY: Status post thoracotomy, chest tube removal TECHNIQUE: Frontal and lateral views of the chest are obtained. FINDINGS: There is been interval removal of the left-sided chest tube. Patchy densities present in t he right upper lobe is more conspicuous. No evident pneumothorax. There is volume loss in the left he mithorax. Prominence of left hilum is associated surgical clip consistent with postop change. Patchy densities present at the left lung base. Cardiac mediastinal silhouette is stable. Aorta is dense. IMPRESSION: Correlate for pneumonia, postop changes, there is underlying emphysema.
[2021-10-22 08:10] LABS: African American GFR (CKD) >90 (>60 ml/min/1.73 sqM); Anion Gap 1 mmol/L; Blood Urea Nitrogen 12 mg/dL (7-17); Calcium 8.5 mg/dL (8.4-10.2); Carbon Dioxide 28 mmol/L (22-30); Chloride 105 mmol/L (98-107); Glucose 108 mg/dL (74-99); Non-African American GFR(CKD) >90 (>60 ml/min/1.73 sqM); Potassium 4.7 mmol/L (3.5-5.1); Sodium 134 mmol/L (137-145)
[2021-10-22 08:12] VITALS: BP 121/67; PULSE 67; TEMP 98.3
[2021-10-22] MEDS: CALCIUM CARBONATE 500 MG CHEWABLE PO SCH (09:16)
[2021-10-22] MEDS: ASPIRIN 81 MG PO SCH (09:16)
[2021-10-22] MEDS: HEPARIN SODIUM,PORCINE/PF 5,000 UNIT/0.5 ML SYRINGE SQ SCH (09:17)
--- NOTE | 2021-10-22 10:22 | P.DS ---
Providers Date of admission: 10/19/21 05:57 Expected date of discharge: 10/22/21 Attending physician: Rigoberto Turner Consults: 10/19/21 12:22 Consult Physician Routine Consulting Provider: Clarisse Collins Reason/Comments: post lobectomy; jakob patient Do you want consulting provider notified?: Yes Primary care physician: Khurram Ratliff Hospital Course: FINAL DIAGNOSIS: 1. Left upper lobe mass, status post left thoracotomy, left upper lobectomy with frozen section of primary tumor showing non-small cell carcinoma 2. Mild COPD with a preoperative FEV1 showing a 72% of predicted value 3. Chronic ongoing tobacco dependence PRINCIPAL PROCEDURE: 1. Left thoracotomy, left upper lobectomy, mediastinal lymph node dissection HISTORY OF PRESENT ILLNESS: This is a 71-year-old female patient who is followed by Dr. Khurram Ratliff on an outpatient basis for primary care service and Dr. Lemon for her pulmonary care. In August 2021 the patient underwent a screening CT which demonstrated a new mass centrally in the left upper lobe. Subsequently due to this finding of a new mass centrally in the left upper lobe she was referred to a bicycle repairer in [place] who performed a bronchoscopy with EBUS and lymph node biopsy. The lymph node biopsies were negative and no diagnosis at that time was established. For further evaluation the patient underwent a PET computed tomography scan which demonstrated a 3 cm central mass abutting but not obviously invasive of the left pulmonary artery. The PET scan also showed no evidence of metastasis and the primary tumor showed an SUV of 10. Patient also underwent a pulmonary function test which showed an FEV1 predicted value of 72% and an FVC 81% of predicted value. Due to the above-mentioned findings she was referred to Dr. Rigoberto Turner from cardiothoracic surgery for further evaluation and treatment recommendations including left thoracotomy with left upper lobectomy. Risks and benefits of surgery were discussed with the patient and knowing and understanding these risks the patient wished to proceed with the surgical option. HOSPITAL COURSE: On 10/19/2021 the patient was brought to the hospital and after obtaining consent, the patient was taken to the preoperative area, prepared in the usual fashion and subsequently taken the operating room where Dr. Rigoberto Turner performed a left thoracotomy, left upper lobectomy and mediastinal lymph node dissection. Upon completion of the surgery the patient was recovered and transferred to the intensive care unit for further recovering and hemodynamic monitoring. On postoperative day #1 the patient was subsequently transferred to the third floor cardiac stepdown unit for further monitoring and rehabilitation. Her left pleural chest tube was removed without incident, supportive drips were discontinued, her oxygen was titrated down, she was tolerating an oral diet, her epidural was removed, her pain was well controlled and she was ready to be discharged home on postoperative day #3. She has received written and verbal instructions regarding her medications, activity restrictions, signs and symptoms requiring physician notification and her follow-up appointments. Her pathology results remain pending and will be discussed with the patient upon her follow-up appointment with Dr. Turner. Plan - Discharge Summary Discharge Rx Participant: Yes New Discharge Prescriptions: New Pantoprazole [Protonix] 40 mg PO AC-BRKFST #30 tab Acetaminophen Tab [Tylenol] 650 mg PO Q4HR PRN tab PRN Reason: Fever And/ Or Pain Continue Glucosam/Niranjan-Msm1/C/Kam/Bosw [Glucosamine-Chondroitin Tablet] 1 each PO DAILY Calcium Carbonate [Calcium] 1,200 mg PO DAILY Aspirin [Adult Low Dose Aspirin EC] 81 mg PO Q48H Vit C/E/Zn/Coppr/Lutein/Zeaxan [Preservision Areds 2 Softgel] 2 tab PO DAILY Rossiter-3 Fatty Acids/Fish Oil [Fish Oil 1,000 mg Softgel] 1 each PO DAILY Multivit-Min/FA/Lycopen/Lutein [Centrum Silver Tablet] 1 each PO DAILY Discharge Medication List Aspirin [Adult Low Dose Aspirin EC] 81 mg PO Q48H 10/18/21 [History] Calcium Carbonate [Calcium] 1,200 mg PO DAILY 10/18/21 [History] Glucosam/Niranjan-Msm1/C/Kam/Bosw [Glucosamine-Chondroitin Tablet] 1 each PO DAILY 10/18/21 [History] Multivit-Min/FA/Lycopen/Lutein [Centrum Silver Tablet] 1 each PO DAILY 10/18/21 [History] Rossiter-3 Fatty Acids/Fish Oil [Fish Oil 1,000 mg Softgel] 1 each PO DAILY 10/18/21 [History] Vit C/E/Zn/Coppr/Lutein/Zeaxan [Preservision Areds 2 Softgel] 2 tab PO DAILY 10/18/21 [History] Acetaminophen Tab [Tylenol] 650 mg PO Q4HR PRN tab 10/22/21 [Rx] Pantoprazole [Protonix] 40 mg PO AC-BRKFST #30 tab 10/22/21 [Rx] Follow up Appointment(s)/Referral(s): Khurram Ratliff MD [Primary Care Provider] - As Needed Rigoberto Turner MD [STAFF PHYSICIAN] - 10/26/21 (Sonya from Dr. Turner's office will call with the time of the appointment.) Alesha Lemon MD [STAFF PHYSICIAN] - 2 Weeks Ambulatory/Diagnostic Orders: XR chest 2V [RAD.AMB] Time Frame: 09/28/21, Facility: [facility] Location: [facility] Activity/Diet/Wound Care/Special Instructions: DISCHARGE INSTRUCTIONS: 1. No driving for 2 weeks, or until physician gives their ok. 2. No lifting, pushing, or pulling more than 10 pounds for 2 weeks. The physician will advise of any restriction changes. 3. Continue pain control per as needed orders. Alternate acetaminophen (Tylenol) and ibuprofen (Motrin/Advil) for pain. 4. Continue with incentive spirometry and splinting until otherwise directed by the physician. 5. Leave chest tube dressing for 48 hours. After that, remove all dressings and shower daily. 6. Routine incision care. No powders, lotions, ointments on incisions. 7. Please call surgeon/DEPARTMENTAL SECRETARY for temp greater than 101 F or purulent drainage from incisions. Discharge Disposition: HOME SELF-CARE
--- NOTE | 2021-10-22 11:43 | P.PN ---
Subjective Progress Note Date: 10/22/21 This is a 71-year-old female with known history of mild COPD, patient was refer red to Dr. Lemon on recently discovered left upper lobe mass. Clinically, the mass was highly suspicious for bronchogenic carcinoma. The mass was initially seen in August of 2021, it measured 2.9 cm in size, and there was evidence of mildly enlarged mediastinal lymph nodes. PET scan confirmed the presence of a suprahilar mass in the left upper lobe with average uptake of 6 maximum of 10.SUV. Patient underwent a bronchoscopy and endobronchial ultrasound by Dr. Rui Funes, however the bronchoscopy was nondiagnostic. Patient had minimal pulmonary symptoms mostly mild dyspnea on exertion, her PFT showed FEV1 of 72% of the predicted her total lung capacity was 104%, DLCO was 60%. Patient was referred to Dr. Turner and she underwent left upper lobectomy On today's evaluation of the 2021, the patient. The patient has no specific complaints. Chest tubes have been removed. The patient is using incentive spirometer. No cough. No sputum production. Surgical site is dry clean and intact. She is ambulating. No nausea. No vomiting. Final pathologic findings are not available and this is expected to come out within the next few days. The plan is to discharge this patient to be followed up on outpatient basis. Case was discussed with the cardiothoracic surgery. The patient is post left upper lobectomy and mediastinal lymph node dissection.. The blood work from today shows normal electrolytes, normal renal function, and the patient is postop day #3. Objective - Vital Signs Vital signs: Vital Signs Temp 98.3 F 10/22/21 08:11 Pulse 67 10/22/21 08:11 Resp 16 10/22/21 08:11 BP 121/67 10/22/21 08:11 Pulse Ox 94 L 10/22/21 08:11 Intake & Output 10/21/21 10/22/21 10/22/21 18:59 06:59 18:59 Intake Total 900 180 Output Total 0 Balance 900 180 Intake: Oral 900 180 Output: Chest Tube Drainage 0 Left Anterior Chest 0 Other: Voiding Method Toilet Toilet Toilet # Voids 2 2 ABP, PAP, CO, CI - Last Documented Arterial Blood Pressure 97/50 - Exam CONSTITUTIONAL: Lying in bed with her head elevated in the intensive care unit, appears comfortable, cooperative, no apparent acute distress. HEENT: Neck is supple, no JVD, no lymphadenopathy. RESPIRATORY: Lungs sounds essentially clear throughout, diminished to his bilateral bases left greater than right. Respirations are symmetrical and nonlabored. Currently on RA CARDIOVASCULAR: Regular rhythm and rate. S1 and S2 present, negative for S3, gallop or murmur. Palpable peripheral pulses bilaterally. No calf pain or tenderness noted. Knee-high sequential compression devices in place to his bilateral lower extremities. GASTROINTESTINAL: Abdomen soft, nontender, nondistended. Active bowel sounds present 4 quadrants. Tolerating diet. Passing flatus. No guarding or rigidity. INTEGUMENTARY: Skin is warm and dry with no evidence of clubbing or cyanosis. Surgical wound site is dry clean and intact NEUROLOGIC: Cranial nerves II through XII intact. No focal deficits. MUSKULOSKELETAL: Able to move all extremities, strength equal bilaterally. PSYCHIATRIC: Alert and oriented to person place and time, appropriate affect, intact judgment and insight. - Labs CBC & Chem 7: 10/21/21 07:39 10/22/21 07:26 Labs: Abnormal Lab Results - Last 24 Hours (Table) 10/21/21 10/22/21 Range/Units 21:36 07:26 Sodium 134 L (137-145) mmol/L Glucose 108 H (74-99) mg/dL POC Glucose (mg/dL) 100 H (75-99) mg/dL Assessment and Plan Plan: Status post left upper lobectomy, mediastinal lymph node dissection, postoperative day #3, and the patient is doing well and the patient is hemod ynamically stable at this point in time. Patient is doing well and she is able to get discharged. Surgical wounds are dry clean and intact. Chest tube has been removed Chest wall pain, controlled Non-small cell lung cancer, based on frozen section of primary tumor History of mild COPD Tobacco dependence syndrome Plan Discharge this patient home today Continue using incentive spirometer Chest x-ray from today showing expected volume loss secondary left upper lobe resection. No pneumothorax. Surgical changes are noted. There is also background COPD. Follow-up in the office to discuss pathologic findings and further plan.
--- NOTE | 2021-10-26 10:42 | CDI ---
Documentation Clarification Form Date: 10/25/2021 01:20:00 PM From: Anjelica Myles RN, CCDS Admit Date: 10/19/2021 05:57:00 AM Patient Name: Rica Price Visit Number: [id number] Discharge Date: 10/22/2021 11:37:00 AM ATTENTION: The Clinical Documentation Specialists (CDI) and [facility] Coding Staff appreciate your assistance in clarifying documentation. Please respond to the clarification below the line at the bottom and electronically sign. The CDI & [facility] Coding staff will review the response and follow-up if needed. Please note: Queries are made part of the Legal Health Record. If you have any questions, please contact the author of this message via ITS. Dr. Rigoberto Turner Subcutaneous emphysema was found on chest x-ray exam on 10/19/21-10/21/21, and documented in pulmonary progress notes on 10/21/21.She is postop left upper lobectomy on 10/19/21. Additional clarification is requested regarding the relationship, if any, that exists between the diagnosis and the procedure. Patients Admitting Diagnosis: Left upper lobe lung mass Post-Operative Diagnosis: Same Procedure performed: Left thoracotomy, Left upper lobectomy, mediastinal lymph node dissection. History/Risk Factors: COPD, Bronchogenic carcinoma, Pneumonia, Bronchitis, Former smoker Clinical Indicators: 71-year-old female present for elective left upper lobectomy and mediastinal lymph node dissection. Follow-up chest x-rays on 10/19-10/21 has findings of subcutaneous emphysema, bandlike area of increased attenuation present in the left mild lung has developed in the interval. 10/20 CXR: Impression: No evident complication status post lobectomy 10/20 CXR: Impression Satisfactory postoperative chest x-ray 10/21 CXR: Impression: Postop changes. Probable atelectasis. Difficult to exclude small effusion. 10/22 CXR: Correlate for pneumonia, postop changes, there is underlying emphysema. Treatment: ICU/Telemetry monitoring per protocol Incentive Spirometer per protocol Monitor O2 Sat's per protocol What relationship, if any, exists between the diagnosis of subcutaneous emphysema and the procedure? [ ] Subcutaneous emphysema on chest x-ray was not a significant finding, and is not a complication of the procedure. [ ] Subcutaneous emphysema is a complication of surgical procedure [ ] Subcutaneous emphysema] is an expected outcome of the surgical procedure [ ] Subcutaneous emphysema is related to patients co-morbid condition(s) of [insert co-morbid dxs] & not a complication of the procedure. [ ] Other please specify ____ [ ] Unable to determine (Template Last Revised: October 2020) MTDD
--- NOTE | 2021-10-31 10:07 | CDI ---
Documentation Clarification Form Date: 10/25/2021 01:20:00 PM From: Anjelica Myles RN, CCDS Admit Date: 10/19/2021 05:57:00 AM Patient Name: Rica Price Visit Number: [id number] Discharge Date: 10/22/2021 11:37:00 AM ATTENTION: The Clinical Documentation Specialists (CDI) and [facility] Coding Staff appreciate your assistance in clarifying documentation. Please respond to the clarification below the line at the bottom and electronically sign. The CDI & [facility] Coding staff will review the response and follow-up if needed. Please note: Queries are made part of the Legal Health Record. If you have any questions, please contact the author of this message via ITS. Dr. Rigoberto Tunrer Subcutaneous emphysema was found on chest x-ray exam on 10/19/21-10/21/21, and documented in pulmonary progress notes on 10/21/21.She is postop left upper lobectomy on 10/19/21. Additional clarification is requested regarding the relationship, if any, that exists between the diagnosis and the procedure. Patients Admitting Diagnosis: Left upper lobe lung mass Post-Operative Diagnosis: Same Procedure performed: Left thoracotomy, Left upper lobectomy, mediastinal lymph node dissection. History/Risk Factors: COPD, Bronchogenic carcinoma, Pneumonia, Bronchitis, Former smoker Clinical Indicators: 71-year-old female present for elective left upper lobectomy and mediastinal lymph node dissection. Follow-up chest x-rays on 10/19-10/21 has findings of subcutaneous emphysema, bandlike area of increased attenuation present in the left mild lung has developed in the interval. 10/20 CXR: Impression: No evident complication status post lobectomy 10/20 CXR: Impression Satisfactory postoperative chest x-ray 10/21 CXR: Impression: Postop changes. Probable atelectasis. Difficult to exclude small effusion. 10/22 CXR: Correlate for pneumonia, postop changes, there is underlying emphysema. Treatment: ICU/Telemetry monitoring per protocol Incentive Spirometer per protocol Monitor O2 Sat's per protocol What relationship, if any, exists between the diagnostic findings of subcutaneous emphysema and the procedure? [ x] Subcutaneous emphysema on chest x-ray was not a significant finding, and is not a complication of the procedure [ ] Subcutaneous emphysema is a complication of surgical procedure [ ] Subcutaneous emphysema] is an expected outcome of the surgical procedure [ ] Subcutaneous emphysema is related to patients co-morbid condition(s) of [insert co-morbid dxs] & not a complication of the procedure. [ ] Other please specify ____ [ ] Unable to determine (Template Last Revised: October 2020) MTDD
== END 2021-10-22 11:37 | disposition home or self-care (01) | DRG 165 ==
LOC: 2ORMAIN 05:57 → 2SICU 11:52 → 3SCARD 10-20 11:39
PROVIDERS: ADMIT Thoracic Surgery (Cardiothoracic Vascular Surgery); ATTEND Thoracic Surgery (Cardiothoracic Vascular Surgery)
PROC: 07B70ZX Excision of Thorax Lymphatic, Open Approach, Diagnostic (ICD-10-PCS; 2021-10-19)
PROC: 0BTG0ZZ Resection of Left Upper Lung Lobe, Open Approach (ICD-10-PCS; principal; 2021-10-19 07:30)
DX: C34.12 Malignant neoplasm of upper lobe, left bronchus or lung (principal); F17.200 Nicotine dependence, unspecified, uncomplicated; J44.9 Chronic obstructive pulmonary disease, unspecified; L29.9 Pruritus, unspecified; Z20.822 Contact with and (suspected) exposure to COVID-19; Z79.82 Long term (current) use of aspirin; Z80.0 Family history of malignant neoplasm of digestive organs; Z87.01 Personal history of pneumonia (recurrent)
CPT/HCPCS: 36415; 71045; 71046; 80048; 85025; 85027; 86850; 86900; 86901; 87635; 88305; 88309; 88313; 88331; 88332; 94640; 94760

== ENCOUNTER → 2021-10-26 | Outpatient (CLI) | payer MEDICARE ==
--- NOTE | 2021-10-26 13:12 | XR ---
EXAMINATION TYPE: XR chest 2V DATE OF EXAM: 10/26/2021 COMPARISON: Chest x-ray 10/22/2021 HISTORY: G 89.12 TECHNIQUE: Frontal and lateral views of the chest are obtained. FINDINGS: Post left thoracotomy IMPRESSION: Postop change is again noted with surgical clips in the left hilum, wedgelike area of in creased attenuation extends from the left hilum. There is abnormal attenuation at the left lung base with obscured left hemidiaphragm. No evident pneumothorax. Right lung is spared. Cardiac mediastinal silhouette is stable. IMPRESSION: Postop changes. There may be left lower lobe atelectasis versus pleural reaction, arin bower
== END | disposition home or self-care (01) ==
LOC: RADXRMAIN 12:37
PROVIDERS: ATTEND Nurse Practitioner Family
DX: J98.4 Other disorders of lung (principal); G89.12 Acute post-thoracotomy pain
CPT/HCPCS: 71046

== ENCOUNTER → 2022-04-27 | Outpatient (CLI) | payer MEDICARE ==
[2022-04-27 09:20] LABS: African American GFR (CKD) >90 (>60 ml/min/1.73 sqM); Blood Urea Nitrogen 14 mg/dL (7-17); Non-African American GFR(CKD) >90 (>60 ml/min/1.73 sqM)
--- NOTE | 2022-04-27 10:20 | CT ---
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 Automated Exposure Control for Dose Reduction was Utilized. TECHNIQUE: CT scan of the thorax is performed following with IV Contrast, patient injected with 70 m L of Isovue 300. FINDINGS: LUNGS: Mild underlying emphysematous change redemonstrated. Interval surgery with new anterior left a pical curvilinear low density fluid and surgical sutures and clips extending from this towards the le ft hilum. Tiny dependent left-sided pleural effusion. Right lung remains clear. No new greater than 5 mm pulmonary nodules or masses. There is no pleural effusion or pneumothorax seen. The tracheobronc hial tree is patent. MEDIASTINUM: There are no new greater than 1 cm hilar or mediastinal lymph nodes. No cardiomegaly o r pericardial effusion is seen. Moderate coronary artery calcification. OTHER: Slight scoliotic curvature is seen. IMPRESSION: Interval surgical treatment of the left lung neoplasm abutting the mediastinum. No residu al or new suspicious greater than 5 mm nodules or masses. No new thoracic adenopathy seen.
== END | disposition home or self-care (01) ==
LOC: RADCTMAIN 08:30
PROVIDERS: ATTEND Internal Medicine Critical Care Medicine
DX: C34.92 Malignant neoplasm of unspecified part of left bronchus or lung (principal)
CPT/HCPCS: 82565; 84520; 71260; 36415; Q9967

== ENCOUNTER → 2022-09-03 | Outpatient (CLI) | payer MEDICARE ==
--- NOTE | 2022-09-10 07:47 | MM ---
Reason for Exam: Screening (asymptomatic). Last mammogram was performed 1 year(s) and 1 month(s) ago. Patient History: Menarche at age 11. Postmenopausal. Patient used Hormonal Contraceptives for 10 years. Maternal aunt had breast cancer at or over age 50. Risk Values: Cesia 5 year model risk: 1.3%. NCI Lifetime model risk: 3.1%. Prior Study Comparison: 02/10/2020 Bilateral MG screening mammo w CAD - 2, [facility]. 08/15/2021 Bilateral MG 3D screening mammo w/cad, [facility]. Tissue Density: The breast tissue is heterogeneously dense. This may lower the sensitivity of mammography. Findings: Analyzed By CAD. There is no suspicious group of microcalcifications or new suspicious mass in either breast. Benign-appearing stable round calcifications within the right breast. Stable chronic nodularity within the left breast. Overall Assessment: Benign, BI-RAD 2 Management: Screening Mammogram of both breasts in 1 year. A clinical breast exam by your physician is recommended on an annual basis and results should be correlated with mammographic findings. Electronically signed and approved by: Jomar Velásquez D.O.
== END | disposition home or self-care (01) ==
LOC: RADMAMWWP 09:55
PROVIDERS: ATTEND Family Medicine
DX: Z12.31 Encounter for screening mammogram for malignant neoplasm of breast (principal); Z78.0 Asymptomatic menopausal state; Z80.3 Family history of malignant neoplasm of breast
CPT/HCPCS: 77063; 77067

== ENCOUNTER → 2023-01-11 | Outpatient (CLI) | payer MEDICARE ==
[2023-01-11 10:14] LABS: African American GFR (CKD) >90 (>60 ml/min/1.73 sqM); Blood Urea Nitrogen 17 mg/dL (7-17); Non-African American GFR(CKD) >90 (>60 ml/min/1.73 sqM)
--- NOTE | 2023-01-11 11:34 | CT ---
EXAMINATION TYPE: CT chest w con DATE OF EXAM: 01/11/2023 COMPARISON: 10/08/2022 and 04/27/2022 HISTORY: 72-year-old female C34.12, Follow up for lung cancer. TECHNIQUE: Contiguous axial scanning of the chest after the administration of 100ml mL of Isovue 300. Coronal/sagittal reconstructions performed. CT DLP: 239.6mGycm. Automatic exposure control utilized for a dose reduction. FINDINGS: Heart normal size without pericardial effusion. LAD and RCA coronary calcifications are present. Aorta normal caliber with mild atherosclerotic arch calcifications and conventional arch vessel branc anna anatomy. There appears to be focal moderate narrowing of the left subclavian artery just after the vertebral a rtery takeoff. Narrowing may be slightly progressed from the prior exams. No thoracic lymphadenopathy by CT size criteria. Moderate centrilobular emphysema. Some focal loculated pleural fluid along the anterior left upper lo be currently measuring 1.8 cm thick versus 2.6 cm on 04/27/2022 and 2.1 cm on 10/08/2022. Postsurgical c hanges of previous left upper lobectomy. Some strandy scarring at the periphery of the left base. No consolidation or pleural effusion. Tiny hiatal hernia. Low-density thickening of the left adrenal gland is unchanged. Bones: Mild degenerative disc disease mid thoracic spine. IMPRESSION: 1. COPD with moderate emphysema and previous left upper lobectomy. 2. Some loculated pleural fluid along the anterior left upper lobe is gradually decreasing currently 1.8 cm thick versus 2.6 cm back on 04/27/2022. No evidence for recurrent/metastatic disease. 3. There may be some progressive, now moderate focal stenosis left subclavian artery after the verteb ral artery takeoff.
== END | disposition home or self-care (01) ==
LOC: RADCTMAIN 09:35
PROVIDERS: ATTEND Internal Medicine Hematology & Oncology
DX: C34.12 Malignant neoplasm of upper lobe, left bronchus or lung (principal); J43.2 Centrilobular emphysema
CPT/HCPCS: 82565; 84520; 71260; 36415; Q9967

== ENCOUNTER → 2023-07-15 | Outpatient (CLI) | payer MEDICARE ==
[2023-07-15 12:41] LABS: African American GFR (CKD) >90 (>60 ml/min/1.73 sqM); Blood Urea Nitrogen 16 mg/dL (7-17); Non-African American GFR(CKD) >90 (>60 ml/min/1.73 sqM)
--- NOTE | 2023-07-16 22:00 | CT ---
EXAMINATION TYPE: CT ChestAbdPelvis w con CT DLP: 1006.6 mGycm, Automated exposure control for dose reduction was used. DATE OF EXAM: 07/15/2023 2:22 PM COMPARISON: CT chest 01/11/2023. CLINICAL INDICATION:Female, 73 years old with history of C34.12 UPPER LOBE, LEFT BRONCHUS OR LUNG; PH H, f/u lung ca Technique: Multiple axial images of the chest, abdomen, and pelvis were obtained. Two-dimensional cor onal and sagittal reconstructions were obtained. Contrast used:100 mL of Isovue 300 with IV Contrast, Oral contrast used: with Oral Contrast Findings: CHEST: LUNGS/ PLEURA: Postsurgical changes to the left lung. No surgical bed soft tissue or lymphadenopathy identified. Mild centrilobular and paraseptal changes throughout the lungs. No evidence for focal con solidation, pneumothorax or pleural effusion. AIRWAY: Patent and unremarkable. HEART: Size within normal limits. Mild to moderate coronary artery atherosclerosis. MEDIASTINUM: No gross evidence of adenopathy. Leftward shift of the mediastinum. VASCULATURE: No aortic aneurysm. MUSCULOSKELETAL: Moderate disc degeneration changes are present throughout the thoracolumbar spine. SOFT TISSUES/LYMPH NODES: Unremarkable. LOWER NECK: No significant findings. ABDOMEN: ABDOMEN LIVER: Unremarkable GALLBLADDER AND BILE DUCTS: Unremarkable. PANCREAS: Unremarkable. SPLEEN: Unremarkable. ADRENAL GLANDS: Unremarkable. KIDNEYS AND URETERS: No evidence of hydronephrosis or renal calculus. The ureters are unremarkable. PELVIS BLADDER: Unremarkable REPRODUCTIVE: Unremarkable. ABDOMEN & PELVIS STOMACH AND BOWEL: No evidence of bowel obstruction. PERITONEUM: No evidence of pneumoperitoneum or free fluid. VASCULATURE: No evidence of aortic aneurysm. MUSCULOSKELETAL: No acute osseous abnormalities LYMPH NODES: No gross evidence for lymphadenopathy. SOFT TISSUE/ABDOMINAL WALL: Unremarkable IMPRESSION: Postsurgical changes to the left lung without evidence for recurrence. No lymphadenopathy identified.
== END | disposition home or self-care (01) ==
LOC: RADCTMAIN 11:55
PROVIDERS: ATTEND Internal Medicine Hematology & Oncology
DX: C34.12 Malignant neoplasm of upper lobe, left bronchus or lung (principal); H91.90 Unspecified hearing loss, unspecified ear; R06.00 Dyspnea, unspecified; Z71.3 Dietary counseling and surveillance; Z98.890 Other specified postprocedural states
CPT/HCPCS: 82565; 84520; 71260; 74177; 36415; Q9967

== ENCOUNTER → 2023-09-06 | Outpatient (CLI) | payer MEDICARE ==
--- NOTE | 2023-09-10 10:33 | MM ---
Reason for Exam: Screening (asymptomatic). Last screening mammogram was performed 12 month(s) ago. Patient History: Menarche at age 11. Patient has no children. Postmenopausal. Patient used Hormonal Contraceptives for 10 years. Maternal aunt had breast cancer at or over age 50. Risk Values: Cesia 5 year model risk: 2.0%. NCI Lifetime model risk: 4.5%. Prior Study Comparison: 02/10/2020 Bilateral MG screening mammo w CAD - 2, [facility]. 08/15/2021 Bilateral MG 3D screening mammo w/cad, [facility]. 09/03/2022 Bilateral MG 3D screening mammo w/cad, [facility]. Tissue Density: The breast tissue is heterogeneously dense. This may lower the sensitivity of mammography. Findings: Analyzed By CAD. There is no suspicious group of microcalcifications or new suspicious mass. Overall Assessment: Negative, BI-RAD 1 Management: Screening Mammogram of both breasts in [address] [facility] will attempt to contact patient to return for supplemental views and ultrasound if indicated. Patient should continue monthly self-breast exams. A clinical breast exam by your physician is recommended on an annual basis. This exam should not preclude additional follow-up of suspicious palpable abnormalities. Note on Cesia scores and lifetime risk: 1. A Cesia score greater than 3% is considered moderate risk. If this is the case, consider specialist referral to assess eligibility for a risk reducing agent. 2. If overall lifetime risk for the development of breast cancer is 20% or higher, the patient may qualify for future screening with alternating mammogram and breast MRI. Electronically signed and approved by: Magno Abarca DO
== END | disposition home or self-care (01) ==
LOC: RADMAMWWP 14:34
PROVIDERS: ATTEND Family Medicine
DX: Z12.31 Encounter for screening mammogram for malignant neoplasm of breast (principal); Z80.3 Family history of malignant neoplasm of breast; Z78.0 Asymptomatic menopausal state
CPT/HCPCS: 77063; 77067

== ENCOUNTER → 2024-01-02 | Outpatient (CLI) | payer MEDICARE ==
[2024-01-02 12:35] LABS: African American GFR (CKD) >90 (>60 ml/min/1.73 sqM); Blood Urea Nitrogen 15 mg/dL (7-17); Non-African American GFR(CKD) >90 (>60 ml/min/1.73 sqM)
--- NOTE | 2024-01-02 13:51 | CT ---
EXAMINATION TYPE: CT chest w con DATE OF EXAM: 01/02/2024 COMPARISON: 01/11/2023 HISTORY: obs for mets hx of lung ca CT DLP: 530 mGycm Automated exposure control for dose reduction was used. TECHNIQUE: CT scan of the chest is performed with IV Contrast, patient injected with 100ml mL of Isovue 300. RI P Images are created on CT scanner and reviewed. 3D reconstructed images are created on an [employer] workstation and reviewed. FINDINGS: There are postsurgical changes of left upper lobe lobectomy with volume loss. There is been interval development of metastatic lesions including a new 5.7 mm nodule in the left up per lobe laterally, a14 mm pleural-based nodule at the left lung base, a second 8 mm nodule pleural b ased nodule left lung base and a 3.7 x 1.8 cm destructive soft tissue mass involving the posterior le ft 11th rib. The great vessels chest are normal no mediastinal, hilar or axillary adenopathy. There is no pleural effusion or pneumothorax. There is no abnormal airspace/consolidative density. Limited scanning through the upper abdomen reveals no gross abnormality. IMPRESSION: Development of new metastatic lung and osseous lesions on the left as described above.
== END | disposition home or self-care (01) ==
LOC: RADCTMAIN 11:45
PROVIDERS: ATTEND Internal Medicine Hematology & Oncology
DX: C79.51 Secondary malignant neoplasm of bone (principal); C34.12 Malignant neoplasm of upper lobe, left bronchus or lung; H91.90 Unspecified hearing loss, unspecified ear; R06.00 Dyspnea, unspecified; Z71.3 Dietary counseling and surveillance; Z98.890 Other specified postprocedural states
CPT/HCPCS: 82565; 84520; 71260; 36415; Q9967

== ENCOUNTER 2024-01-17 12:46 | Day surgery (SDC) | payer MEDICARE ==
[2024-01-15 13:34] VITALS: BMI 28.3
[~2024-01-17 12:46] MED LIST: LACTATED RINGERS 1,000 ML IV SCH
[2024-01-17] MEDS: LACTATED RINGERS 1,000 ML IV ONE (13:55)
[2024-01-17] MEDS ORDERED: PROPOFOL 10 MG/ML 20 ML VIAL IV ONE (14:51)
[2024-01-17] MEDS ORDERED: fentaNYL (PF) 50 MCG/ML 2 ML AMP ONE (14:51)
[2024-01-17 14:58] VITALS: RESP 16; TEMP 98.3
--- NOTE | 2024-01-17 15:15 | P.PCN ---
Date of Procedure: 01/17/24 Procedure(s) Performed: BRIEF HISTORY: Patient is a 73-year-old pleasant white female scheduled for an elective colonoscopy as a part of screening for colon cancer. PROCEDURE PERFORMED: Colonoscopy with snare polypectomy. PREOPERATIVE DIAGNOSIS: Screening for colon cancer. IV sedation per Anesthesia. PROCEDURE: After informed consent was obtained, the patient, was brought into the endoscopy unit. IV sedation was administered by Anesthesia under continuous monitoring. Digital rectal examination was normal. Initially the Olympus CF-160 flexible video colonoscope was then inserted in the rectum, gradually advanced into the cecum without any difficulty. Careful examination was performed as the scope was gradually being withdrawn. Ileocecal valve and the appendiceal orifice were visualized and appeared normal. Prep was excellent. Mucosa of the cecum, ascending colon, transverse colon appeared normal. The descending colon there was a 6 mm polyp that was removed by cold snare polypectomy. Rest of the, descending colon, sigmoid colon, and rectum appeared normal. Scattered sigmoid diverticulosis. Retroflexion was performed in the rectum and no lesions were seen. The patient tolerated the procedure well. IMPRESSION: 6 mm desscending colon polyp status post cold snare polypectomy Scattered sigmoid diverticulosis RECOMMENDATIONS: Findings of this examination were discussed with the patient as well as her family. She was advised to follow-up with the biopsy results. If the biopsy reveals adenoma she can have repeat colonoscopy in 5 years..
[2024-01-17 15:54] VITALS: BP 125/65; PULSE 71
== END 2024-01-17 15:47 | disposition home or self-care (01) ==
LOC: ORWHC2ENDO 12:46
PROVIDERS: ATTEND Internal Medicine Gastroenterology
DX: Z12.11 Encounter for screening for malignant neoplasm of colon (principal); D12.4 Benign neoplasm of descending colon; K57.30 Diverticulosis of large intestine without perforation or abscess without bleeding; F17.210 Nicotine dependence, cigarettes, uncomplicated; Z88.0 Allergy status to penicillin; Z79.82 Long term (current) use of aspirin; Z79.899 Other long term (current) drug therapy; Z88.2 Allergy status to sulfonamides; Z98.890 Other specified postprocedural states
CPT/HCPCS: 88305; 45385; J3010; J2704

== ENCOUNTER → 2024-01-30 | Outpatient (CLI) | payer MEDICARE ==
--- NOTE | 2024-02-01 12:15 | PE ---
EXAMINATION TYPE: PET CT fusion skull to thigh DATE OF EXAM: 01/30/2024 CLINICAL INDICATION:Female, 74 years old with history of C34.2 LUNG CANCER; TECHNIQUE: Following the intravenous administration of 10.4 mCi of F-18 FDG, whole body images are performed from the skull base to the midthigh. Images are reviewed on the computer in the coronal, a xial, and sagittal planes. Reconstructed rotating images are created on independent workstation and reviewed on the computer. A non-contrast CT is performed in conjunction with the PET scan. Glucose level 84 mg/dL CT DLP: 547 mGycm, Automated exposure control for dose reduction was used. COMPARISON: CT 01/02/2024, PET/CT 09/19/2021, FINDINGS: Mediastinal SUV mean is 2.2. Hepatic parenchyma SUV mean is 2.9. SKULL BASE AND NECK: No suspicious radiotracer activity. CHEST, MEDIASTINUM, AND HILAR REGION: FDG avid lesions within the thorax including: * A lymph node in the left epicardial fat with adjacent uptake in the left lower lobe with does not have corresponding nodule possibly representing misregistration artifact. Lymph node measures 9 mm in short axis max SUV 5.8. * Medial inferior lower lung max SUV 3.45 which also appears to have been misregistration artifact * Postsurgical changes of left upper lung Left suprahilar mass seen on prior PET/CT is not seen on t annita's exam and likely surgically absent. ABDOMEN AND PELVIS: No suspicious radiotracer activity. MUSCULOSKELETAL STRUCTURES: Soft tissue mass in the chest wall with destructive bony changes max SUV 11.1. Involving left rib 11 mass measures at least 4.4 x [address]: Bilateral aphakia Discussion of the carotid bifurcations, coronary arteries and arterial vasculature. Scattered colonic diverticula. There is normal. IMPRESSION: Abnormal FDG activity within the left 11th rib and in the left epicardial fat lymph node and a left l ower lobe pulmonary nodule. Findings concerning for metastatic disease.
== END | disposition home or self-care (01) ==
LOC: RADPETMAIN 11:07
PROVIDERS: ATTEND Internal Medicine Hematology & Oncology
DX: C34.2 Malignant neoplasm of middle lobe, bronchus or lung (principal); R91.1 Solitary pulmonary nodule
CPT/HCPCS: 78815; A9552

== ENCOUNTER → 2024-06-11 | Outpatient (CLI) | payer MEDICARE ==
--- NOTE | 2024-06-14 14:29 | PE ---
EXAMINATION TYPE: PET CT fusion skull to thigh DATE OF EXAM: 06/11/2024 CLINICAL INDICATION:Female, 74 years old with history of C34.12 Lung Ca; TECHNIQUE: Following the intravenous administration of 9.96 mCi of F-18 FDG, whole body images are performed from the skull base to the midthigh. Images are reviewed on the computer in the coronal, a xial, and sagittal planes. Reconstructed rotating images are created on independent workstation and reviewed on the computer. A non-contrast CT is performed in conjunction with the PET scan. Glucose level 99 mg/dL CT DLP: 568 mGycm, Automated exposure control for dose reduction was used. COMPARISON: CT None, PET/CT 01/30/2024, MRI: None FINDINGS: Mediastinal SUV mean is 2.2. Hepatic parenchyma SUV mean is 2.9. SKULL BASE AND NECK: No suspicious radiotracer activity. CHEST, MEDIASTINUM, AND HILAR REGION: FDG avid lesions within the thorax including: * A lymph node in the left epicardial fat with adjacent uptake in the left lower lobe with does not have corresponding nodule possibly representing misregistration artifact. Lymph node now measures up to 15 mm previously 9 mm in short axis max SUV 6.3, previously 5.8. * r other nodular densities in the lateral aspect of the left lower lobe near the diaphragm with inc reased metabolic activity measuring up to 12 mm Max SUV 3.9 series 4 image 110 * Medial inferior left lower lung max SUV max SUV 5.65, previously 3.45 which measuring up to 10 mm. * Postsurgical changes of left upper lung Left suprahilar mass seen on prior PET/CT is not seen on t annita's exam and likely surgically absent. ABDOMEN AND PELVIS: No suspicious radiotracer activity. MUSCULOSKELETAL STRUCTURES: Soft tissue mass in the chest wall with destructive bony changes max SUV 10.2, previously 11.1. Invol ving left rib 11 mass measures at least 4.9 x 2.6 cm when measuring similarly 4.4 x [address]: Bilateral aphakia. Calcifications of the carotid bifurcations, coronary arteries and arteri al vasculature. Scattered colonic diverticula. IMPRESSION: Findings of mildly progressed disease with increasing nodular densities in the left lung base with in creased metabolic activity as well as increasing epicardial fat lymph nodes size and metabolic activi ty. A couple new lesions with increased metabolic activity are also seen in the left lung base. Addit ionally the chest wall lesion posteriorly does appear to have increased size while slightly diminishe d FDG activity. [facility], , 06/14/2024 2:27 PM
== END | disposition home or self-care (01) ==
LOC: RADPETMAIN 09:31
PROVIDERS: ATTEND Internal Medicine Hematology & Oncology
CPT/HCPCS: 78815

== ENCOUNTER → 2024-06-12 | Outpatient (CLI) | payer MEDICARE ==
--- NOTE | 2024-06-12 11:44 | MR ---
EXAMINATION TYPE: MR brain wo/w con DATE OF EXAM: 06/12/2024 COMPARISON: None HISTORY: Lung ca w/mets, R/O brain mets TECHNIQUE: Multiplanar, multisequence images of the brain and brainstem is performed without and with IV contras t, utilizing 7 mL intravenous Gadavist . FINDINGS: Diffusion weighted images demonstrate no evidence of a recent infarct or other diffusion ab normality. There is mild generalized degenerative changes. Mild changes of chronic sinusitis. Orbits are symmetric. There is focal areas of abnormal signal in the white matter most typical of remote microvascular isch emia. There is abnormal signal seen within the distal and chelly with no enhancement and therefore like ly on the basis of remote areas of ischemia. Midline structures demonstrate normal morphology. The craniocervical junction appears within normal limits. Post contrast images demonstrate enhancement along the left parietal cortex favored to be va scular. The dural venous sinuses appear patent. IMPRESSION: 1. Degenerative and remote ischemic change. 2. No evidence of intracranial metastases. Linear area of enhancement along the left superior cortex likely is vascular. Recommend continued surveillance with short-term follow-up of 3-6 month MRI for c onfirmation. [facility], , 06/12/2024 11:42 AM
== END | disposition home or self-care (01) ==
LOC: RADMRIMAIN 09:35
PROVIDERS: ATTEND Internal Medicine Hematology & Oncology
CPT/HCPCS: 70553

== ENCOUNTER → 2024-08-07 | Outpatient (CLI) | payer MEDICARE ==
[2024-08-07 10:37] LABS: African American GFR (CKD) >90 (>60 ml/min/1.73 sqM); Blood Urea Nitrogen 14 mg/dL (7-17); Non-African American GFR(CKD) >90 (>60 ml/min/1.73 sqM)
--- NOTE | 2024-08-07 11:36 | CT ---
CT chest with contrast HISTORY: Lung cancer. COMPARISON: 01/02/2024. TECHNIQUE: Multiple axial images are obtained through the thorax following uneventful administration nonionic IV contrast material. FINDINGS: There are postsurgical changes of partial left lung resection with volume loss. There are increasing left lower lobe lung masses including a 14 mm left lung base mass which is now 1 7.5 mm. A second ill-defined mass measuring 21 mm has now developed at the left lung base as well. A small 5 to 6 mm nodule seen in the left lung apex is stable. There is a small but increasing left pleural effusion. There is marked destruction of the left posterior 11th rib by a growing soft tissue mass. The right lung is clear. Great vessels chest are normal and is no mediastinal, hilar or axillary adenopathy. Limited scanning of the upper abdomen reveals no gross abnormality. IMPRESSION: Interval worsening of left lung cancer with growing left lung mass and new left lung mass. Increasing small left pleural effusion and increasing soft tissue mass destroying the posterior left 11th rib. [facility], Workstation: [id number] 08/07/2024 11:34 AM
== END | disposition home or self-care (01) ==
LOC: RADCTMAIN 09:55
PROVIDERS: ATTEND Internal Medicine Hematology & Oncology
DX: C34.12 Malignant neoplasm of upper lobe, left bronchus or lung (principal); H91.90 Unspecified hearing loss, unspecified ear; Z71.3 Dietary counseling and surveillance; J90 Pleural effusion, not elsewhere classified; R22.2 Localized swelling, mass and lump, trunk
CPT/HCPCS: 82565; 84520; 71260; 36415; Q9967

== ENCOUNTER → 2024-11-12 | Outpatient (CLI) | payer MEDICARE ==
--- NOTE | 2024-11-12 14:29 | MM ---
Reason for Exam: Screening (asymptomatic). Last mammogram was performed 1 year(s) and 2 month(s) ago. Patient History: Menarche at age 11. Patient has no children. Postmenopausal. Patient used Hormonal Contraceptives for 10 years. Maternal aunt had breast cancer at or over age 50. Risk Values: Cesia 5 year model risk: 2.0%. NCI Lifetime model risk: 4.2%. Prior Study Comparison: 08/15/2021 Bilateral MG 3D screening mammo w/cad, [facility]. 09/03/2022 Bilateral MG 3D screening mammo w/cad, [facility]. 09/06/2023 Bilateral MG 3D screening mammo w/cad, [facility]. Tissue Density: The breasts are heterogeneously dense, which may obscure small masses. Findings: Analyzed By CAD. A group of indistinct calcifications in the right breast anteriorly slightly upper aspect shows slight increased number from prior mammograms and warrants further workup . Overall Assessment: Incomplete: need additional imaging evaluation, BI-RAD 0 Management: Diagnostic Mammogram of the right breast. Advised spot magnification and 3-D true lateral views right breast. Patient should continue monthly self-breast exams. A clinical breast exam by your physician is recommended on an annual basis. This exam should not preclude additional follow-up of suspicious palpable abnormalities. Note on Cesia scores and lifetime risk: 1. A Cesia score greater than 3% is considered moderate risk. If this is the case, consider specialist referral to assess eligibility for a risk reducing agent. 2. If overall lifetime risk for the development of breast cancer is 20% or higher, the patient may qualify for future screening with alternating mammogram and breast MRI. [facility], , 11/12/2024 2:25 PM. Electronically signed and approved by: Paulie Goodwin M.D.
== END | disposition home or self-care (01) ==
LOC: RADMAMWWP 13:46
PROVIDERS: ATTEND Family Medicine
DX: Z12.31 Encounter for screening mammogram for malignant neoplasm of breast (principal); R92.333 Mammographic heterogeneous density, bilateral breasts; Z78.0 Asymptomatic menopausal state; Z80.3 Family history of malignant neoplasm of breast
CPT/HCPCS: 77063; 77067

== ENCOUNTER → 2024-11-13 | Outpatient (CLI) | payer MEDICARE ==
[2024-11-13 15:17] LABS: Chol/HDL Ratio 3.92 Ratio; LDL Cholesterol,Calculated 113.7 mg/dL (0.0-131.0); T4, Free (Free Thyroxine) 1.31 ng/dL (0.80-1.80)
== END | disposition home or self-care (01) ==
LOC: LABWHC1 09:10
PROVIDERS: ATTEND Nurse Practitioner Adult Health
DX: Z00.01 Encounter for general adult medical examination with abnormal findings (principal); Z13.1 Encounter for screening for diabetes mellitus
CPT/HCPCS: 36415; 80061; 83036; 84439; 84443

== ENCOUNTER → 2024-11-19 | Outpatient (CLI) | payer MEDICARE ==
--- NOTE | 2024-11-19 08:23 | MM ---
Reason for Exam: Additional evaluation requested from abnormal screening. Last screening mammogram was performed less than 1 month ago. Patient History: Menarche at age 11. Patient has no children. Postmenopausal. Patient used Hormonal Contraceptives for 10 years. Maternal aunt had breast cancer at or over age 50. Risk Values: Cesia 5 year model risk: 2.0%. NCI Lifetime model risk: 4.2%. Tissue Density: Right: The breasts are heterogeneously dense, which may obscure small masses. Findings: Analyzed By CAD. Benign-appearing calcifications stable from multiple prior exams. No suspicious grouped calcifications, architectural distortion or dominant mass. Overall Assessment: Probably benign, BI-RAD 3 Management: Diagnostic Mammogram of the right breast in 6 months. . Results were given to the patient verbally at the time of exam. Patient should continue monthly self-breast exams. A clinical breast exam by your physician is recommended on an annual basis. This exam should not preclude additional follow-up of suspicious palpable abnormalities. Note on Cesia scores and lifetime risk: 1. A Cesia score greater than 3% is considered moderate risk. If this is the case, consider specialist referral to assess eligibility for a risk reducing agent. 2. If overall lifetime risk for the development of breast cancer is 20% or higher, the patient may qualify for future screening with alternating mammogram and breast MRI. [facility], , 11/19/2024 8:20 AM. Electronically signed and approved by: Nestor Dawson M.D. Radiologis
== END | disposition home or self-care (01) ==
LOC: RADMAMWWP 08:03
PROVIDERS: ATTEND Family Medicine
DX: R92.8 Other abnormal and inconclusive findings on diagnostic imaging of breast (principal); R92.331 Mammographic heterogeneous density, right breast; R92.1 Mammographic calcification found on diagnostic imaging of breast; Z78.0 Asymptomatic menopausal state; Z80.3 Family history of malignant neoplasm of breast; Z92.0 Personal history of contraception
CPT/HCPCS: 77061; 77065

== ENCOUNTER → 2025-01-08 | Outpatient (CLI) | payer MEDICARE ==
[2025-01-08 10:02] LABS: African American GFR (CKD) >90 (>60 ml/min/1.73 sqM); Blood Urea Nitrogen 13 mg/dL (7-17); Non-African American GFR(CKD) >90 (>60 ml/min/1.73 sqM)
--- NOTE | 2025-01-10 16:26 | CT ---
EXAMINATION TYPE: CT ChestAbdPelvis w con DATE OF EXAM: 01/08/2025 12:55 PM COMPARISON: 10/12/2024 and PET/CT 06/11/2024 CLINICAL INDICATION: Female, 74 years old with history of C34.12 LUNG CANCER; [facility], Lung ca follow up post chemo Technique: CT ChestAbdPelvis with IV contrast. Delayed images to the kidneys. Two-dimensional coronal and sagittal reconstructions were obtained. Contrast used:100 ml mL of Isovue 300 with IV Contrast, (None if empty) Oral contrast used: with Oral Contrast CT DLP: 764.60 mGycm, Automated exposure control for dose reduction was used. Findings: CHEST: Heart normal size without pericardial effusion. LAD and RCA coronary artery calcifications are prese nt. Ectatic ascending aorta 3.6 cm. Complex arch vessel branching anatomy. No thoracic lymphadenopathy by CT size criteria. Postsurgical change appears to relate to prior left upper lobectomy. Overall trace left pleural effusion with associated pleural parenchymal opacities are relatively sarkis lar. More nodular density at the left base measures 1.3 cm versus 1.7 cm, previously. No discrete enlarging soft tissue abnormality is seen. Soft tissue involving the left lower thoracic chest wall and causing chronic erosion of multiple ribs measures 2.3 cm thick 2.5 cm, previously, not significantly changed. Moderate emphysematous changes with biapical pleural-parenchymal scarring. ABDOMEN: No focal liver lesion or biliary ductal dilatation. Portal venous system is patent. Gallbladder, adrenal glands, kidneys, spleen, and pancreas within normal limits. Mild atherosclerotic calcifications abdominal aorta and common iliac arteries. No dilated small bowel , free fluid, or free air. No mesenteric or retroperitoneal lymphadenopathy. Suspect visualization of short segments of a normal appendix. Scattered mild stool. No pericolonic in flammatory change. Pelvis: Bladder is urine distended. Uterus is anteverted. Neither ovary clearly identified from clustered bow el loops. Prominent periuterine varices left. No abnormal fluid collection in the pelvis or pelvic ly mphadenopathy. Bones: Moderate degenerative change of the right hip. Chronic destruction of multiple left posterior lower r ibs. Facet arthropathy mid to lower lumbar spine. No new osseous destructive process seen. IMPRESSION: 1. Status post left upper lobectomy and chronic left basilar pleural parenchymal scarring/site of zayra ated disease with trace left pleural effusion. The overall configuration of opacities at the left bas e including soft tissue eroding multiple left lower ribs is unchanged to minimally decreased. No evid ence for disease progression. 2. COPD with moderate emphysema. 3. Prominent left parauterine varices is nonspecific but may be seen with pelvic congestion syndrome. [facility], Workstation: [email or web address], 01/10/2025 4:23 PM
== END | disposition home or self-care (01) ==
LOC: RADCTMAIN 09:15
PROVIDERS: ATTEND Internal Medicine Hematology & Oncology
DX: J90 Pleural effusion, not elsewhere classified (principal); R91.8 Other nonspecific abnormal finding of lung field; Z71.3 Dietary counseling and surveillance; J43.9 Emphysema, unspecified; J44.9 Chronic obstructive pulmonary disease, unspecified; H91.90 Unspecified hearing loss, unspecified ear; Z90.2 Acquired absence of lung [part of]
CPT/HCPCS: 82565; 84520; 71260; 74177; 36415; Q9967